=== PATIENT | male | born 1940 | race Caucasian/White ===

== ENCOUNTER → 2017-05-10 13:11 | Outpatient (CLI) | payer MEDICARE, SELFPAY ==
[2017-05-10 14:51] LABS: Blood Urea Nitrogen 23 mg/dL (7-18); Creatinine,Serum 1.08 mg/dL (0.70-1.30); Estimated Glomerular Filt Rate 66 ml/min (>60); GFR (African American) 80 ML/MIN (>60)
== END ==
PROVIDERS: Visit Provider Nurse Practitioner Family
DX: K62.5 Hemorrhage of anus and rectum (principal)
CPT/HCPCS: 36415; 82565; 84520

== ENCOUNTER → 2017-05-11 09:24 | Outpatient (CLI) | payer MEDICARE, SELFPAY ==
--- NOTE | 2017-05-11 09:30 | CT_ITS ---
CT abdomen pelvis w con COMPARISON: CT scan abdomen pelvis 04/11/2016 HISTORY: Rectal bleeding TECHNIQUE: Multiaxial scans obtained from the hemidiaphragms to the pelvic floor and were performed with IV and oral contrast. Sagittal and coronal reformats were evaluated as well. FINDINGS: The lower lung sawyer are clear. Cardiac size is normal. The liver spleen stomach and pancreas appear grossly normal. The gallbladder is normal size and shows partial septation near the neck of the gallbladder but no definite gallstones. The adrenal glands are normal. The kidneys are normal size and show symmetrical function. Again noted is a prominent right renal pelvis likely due to a parapelvic cyst. There is no obstructive uropathy of either kidney. The small bowel appears grossly normal, most of the oral contrast is in the distal small bowel. There has been a previous appendectomy. There is large amount stool throughout colon. There is mild elongation of the sigmoid colon. There is a possible polypoid lesion arising from the posterior wall the rectum versus stool. The prostate is moderately enlarged and causes extrinsic mass effect on the base of urinary bladder.. IMPRESSION: 1. Stable parapelvic cyst right kidney versus extrarenal pelvis I favor the former 2. Somewhat redundant sigmoid colon, questionable filling defect arising from the posterior wall of the mid rectum versus stool. And in view of the history consider follow-up colonoscopy for continuing evaluation
--- NOTE | 2017-05-11 10:16 | HMH.ITSHM ---
NAPROXEN, FLUOXETINE, SMVASTATIN, TAZTIA, TRIAM, FINASTENDE, TAMSULOXN, MEMANTINE, FAMOTIDINE, CENTRUM, B12, ASPIRIN, CLEAR FAX
== END ==
PROVIDERS: PCP Family Medicine; Visit Provider Nurse Practitioner Family
DX: K62.5 Hemorrhage of anus and rectum (principal)
CPT/HCPCS: 74177; Q9967

== ENCOUNTER → 2017-07-23 08:39 | Outpatient (POV) | payer MEDICARE, SELFPAY | PROVIDERS: Visit Provider Physician Assistant | DX: Z00.00 Encounter for general adult medical examination without abnormal findings (principal) ==

== ENCOUNTER → 2018-01-01 13:50 | Outpatient (CLI) | payer MEDICARE, SELFPAY ==
--- NOTE | 2018-01-01 14:01 | XR_ITS ---
XR knee LT 4V HISTORY: ITS.REASON: LT KNEE PAIN ORDERING PHYSICIAN: Radha Rosen MD PATIENT AGE: 77 years COMPARISON: 03/24/2016 FINDINGS: Weightbearing views are performed. Moderate to severe osteoarthritic changes are present at the lateral compartment with moderate osteoarthritis of the patellofemoral joint and medial compartment. Osteosclerosis with osteophyte formation is present. There is chondrocalcinosis of the medial meniscus. A rounded sclerotic density is present in the popliteal fossa at 16 mm and may represent a synovial osteochondroma. No fracture or dislocation. IMPRESSION: Moderate to severe osteoarthritis which is somewhat worse when compared to the previous exam
== END ==
PROVIDERS: PCP Family Medicine; Visit Provider Orthopaedic Surgery
DX: M25.562 Pain in left knee (principal)
CPT/HCPCS: 73564

== ENCOUNTER 2018-01-01 14:51 | Outpatient (RCR) | payer MEDICARE, SELFPAY | END 2018-01-02 09:59 | disposition home or self-care (01) | LOC: PT 14:51 | PROVIDERS: Visit Provider Orthopaedic Surgery | DX: M17.11 Unilateral primary osteoarthritis, right knee (principal) | CPT/HCPCS: 97760 ==

== ENCOUNTER → 2018-08-01 07:23 | Outpatient (CLI) | payer MEDICARE, SELFPAY ==
--- NOTE | 2018-08-01 07:28 | CT_ITS ---
CT abdomen pelvis wo con CLINICAL INDICATION: ITS.REASON: PAINLESS HEMATURIA ORDERING PHYSICIAN: Vadim Potts MD PATIENT AGE: 78 years COMPARISON: 05/11/2017. TECHNIQUE: Axial images obtained with sagittal and coronal reformats. All CT scans at the facility use one or more dose reduction, viz: automated exposure control, ma/kV adjustment per patient size (including targeted exams where dose is matched to indication, i.e. head), or iterative reconstruction technique. PROCEDURE: Oral Contrast: None IV Contrast: None . FINDINGS: Lower thorax: No acute finding Liver, gallbladder, spleen, pancreas and adrenal glands are normal. There is a stable prominent likely developmental right renal pelvis. The kidneys are normal. Urinary bladder shows a posterior stable outpouching which could be thyroid. There are no urinary bladder stones. There are some aortic calcified plaques without dilatation. There is incomplete fluid distention of the stomach for adequate evaluation. GI tract is otherwise unremarkable. Appendix is not visualized. There are some surgical clips at the right inguinal area. Pelvis is otherwise unremarkable. There are some degenerative changes at the hips bilaterally with subchondral cyst formation involving both femoral heads. There is also degenerative subchondral changes involving the roof of the acetabular areas. There is mild levoscoliosis. IMPRESSION: No acute process. Developmental stable right prominent renal pelvis. Probable stable posterior wall urinary bladder diverticulum. Degenerative changes in the hip areas bilaterally. No definite renal lesion or renal or ureteral stone. However symptoms persist I would suggest repeat study with intravenous contrast and delayed imaging.
== END ==
PROVIDERS: PCP Family Medicine; Visit Provider Family Medicine
DX: R31.9 Hematuria, unspecified (principal)
CPT/HCPCS: 74176

== ENCOUNTER → 2018-10-22 12:44 | Outpatient (POV) | payer MEDICARE, SELFPAY | PROVIDERS: Visit Provider Dermatology | DX: Z00.00 Encounter for general adult medical examination without abnormal findings (principal) ==

== ENCOUNTER → 2019-01-07 10:54 | Outpatient (POV) | payer MEDICARE, SELFPAY | PROVIDERS: Visit Provider Dermatology | DX: Z00.00 Encounter for general adult medical examination without abnormal findings (principal) ==

== ENCOUNTER → 2019-08-19 10:22 | Outpatient (CLI) | payer MEDICARE, SELFPAY ==
--- NOTE | 2019-08-19 10:35 | XR_ITS ---
PROCEDURE: XR KUB CLINICAL INDICATION: GENERALIZED ABD PAIN COMPARISON: No exams were available for comparison FINDINGS: Bowel gas pattern is nonspecific. No intestinal obstruction or free air. There are multiple surgical tacks along the lower pelvic region on right. Degenerative changes are present in the lumbar spine with mild scoliosis and within the hips. IMPRESSION: Nonspecific nonacute findings Dictated by: Neal Trujillo MD 08/19/2019 15:27 Electronically signed by Neal Trujillo MD in [facility] 08/19/2019 15:27
== END ==
PROVIDERS: PCP Family Medicine; Visit Provider Family Medicine
DX: R10.84 Generalized abdominal pain (principal)
CPT/HCPCS: 74018

== ENCOUNTER 2019-08-20 05:26 | Emergency (ER) | payer MEDICARE, SELFPAY ==
[2019-08-20 05:27] VITALS: BP 130/77; PULSE 70; RESP 18; TEMP 36.4; O2SAT 99; BMI 21.9
--- NOTE | 2019-08-20 05:35 | CT_ITS ---
PROCEDURE: CT ABDOMEN PELVIS WO CON CLINICAL INDICATION: flank pain Right flank pain, difficulty urinating COMPARISON: ABDPELWO CT abdomen pelvis wo con from 08/01/2018 TECHNIQUE: Axial images obtained with sagittal and coronal reformats. All CT scans at the facility use one or more dose reduction, viz: automated exposure control, ma/kV adjustment per patient size (including targeted exams where dose is matched to indication, i.e. head), or iterative reconstruction technique. FINDINGS: LOWER THORAX: On the most superior image there is a noncalcified pulmonary nodule within the right upper lobe measuring 6 mm. There is trace right pleural effusion. Minimal pericardial thickening noted as well as coronary artery calcification. The liver, gallbladder, spleen, adrenal glands have an unremarkable appearance. There is atrophy of the pancreas. There is bilateral hydronephrosis and hydroureter secondary to severe distention of the urinary bladder. No renal or ureteral calculi evident. The urinary bladder extends superiorly to the level of the umbilicus. The prostate is enlarged at 5.6 by 5.3 cm. The prostate has a somewhat nodular contour superiorly. No intestinal obstruction or free air. There is a mild amount of retained colonic feces. Surgical clips are present in the right lower quadrant and right inguinal region. Clip is also noted in the left inguinal area. No evidence of appendicitis or diverticulitis. There is mild diffuse anasarca. No acute bony anomalies are evident. IMPRESSION: 1. Distended urinary bladder with bilateral hydronephrosis and hydroureter. No ureteral calculi. 2. Enlarged prostate with nodular contour. 3. Constipation 4. 6 mm nodule right upper lobe incompletely imaged Dictated by: Neal Trujillo MD 08/20/2019 06:42 Electronically signed by Neal Trujillo MD in [facility] 08/20/2019 06:42
[2019-08-20 05:43] LABS: Microscopic, Urine URINE MICROSCOPIC (MICROSCOPIC)
[2019-08-20 05:43] LABS: Basophils # 0.1 K/mm3 (0-0.2); Basophils % 0.7 % (0.1-2.0); Eosinophils # 0.3 K/mm3 (0.0-0.4); Hematocrit 43.1 % (42.0-52.0); Hemoglobin 15.1 g/dL (14.1-18.0); Lymphocytes # 1.8 K/mm3 (0.7-4.5); Lymphocytes % 27.1 % (10-50); Mean Corpuscular HGB Conc 35.1 g/dL (31.8-35.4); Mean Corpuscular Hemoglobin 32.5 pg (27.0-31.2); Mean Corpuscular Volume 92.8 fl (80-94); Mean Platelet Volume 8.5 fl (7.4-10.4); Monocytes # 0.7 K/mm3 (0.1-1.0); Monocytes % 10.1 % (1.7-9.3); Neutrophils # 3.7 K/mm3 (1.8-7.8); Neutrophils % 57.1 % (37.0-80.0); Platelet Count 164 K/mm3 (142-424); Red Blood Count 4.64 M/mm3 (4.60-6.20); Red Cell Distribution Width 12.6 % (11.5-17.5); White Blood Count 6.5 K/mm3 (4.8-10.8)
[2019-08-20 05:44] LABS: Appearance,Urine CLEAR (Clear); Bilirubin,Urine Negative (Negative); Blood, Urine Negative (Negative); Color,Urine YELLOW (Yellow); Glucose,Urine (UA) Negative (Negative); Ketones,Urine Negative (Negative); Leukocyte Esterase,Urine Negative (Negative); Nitrate,Urine Negative (Negative); Protein,Urine Negative (Negative); Specific Gravity, Urine 1.015 (1.005-1.030); Urobilinogen,Urine 0.2 EU/dl (0.2)
[2019-08-20 05:45] LABS: Chloride 99 mmol/L (98-107); Sodium 138 mmol/L (136-145)
[2019-08-20 05:46] LABS: Potassium 3.8 mmoL/L (3.5-5.1)
[2019-08-20 05:48] LABS: Alanine Aminotransferase 21 U/L (12-78); Albumin Level 4.3 g/dl (3.5-5.0); Alkaline Phosphatase 117 U/L (38-126); Anion Gap 16.8 mEq/L (5-15); Aspartate Amino Transferase 30 U/L (17-59); Blood Urea Nitrogen 28 mg/dl (9-20); Carbon Dioxide 26 mmol/L (22.0-30.0); Creatinine Clearance Estimated 32 mL/min (50-200); Estimated Glomerular Filt Rate 30 ml/min (>60); GFR (African American) 37 ML/MIN (>60)
[2019-08-20 05:49] LABS: Albumin/Globulin Ratio 1.4 (1.1-1.8); Calcium 9.6 mg/dl (8.4-10.2); Glucose 102 mg/dl (74-100); Total Protein,Serum 7.3 g/dl (6.3-8.2)
[2019-08-20 06:14] LABS: Bacteria,Urine Trace /lpf; Squamous Epithelial Cell,Urine Occasional #/hpf (0-5)
[2019-08-20 06:30] VITALS: BP 136/75; PULSE 55; RESP 14; O2SAT 95
--- NOTE | 2019-08-20 07:01 | HMH.EDGENADL ---
ED Disposition Clinical Impression: Urinary retention, Prostate enlargement Disposition: Home, Self-Care Condition on Discharge: Good Instructions: DI for Urinary Retention in Men Additional Instructions: Urinalysis shows no urinary tract infection; CBC is essentially normal with no leukocytosis, CMP shows elevated BUN and creatinine of 28 and 2.1 with a GFR of 30 The change in the GFR seems to be relatively new; as of 05/10/2017 he had a BUN and creatinine of 23 and 1.08 with a GFR greater than 60 CT of the abdomen and pelvis shows bilateral hydronephrosis and hydroureter secondary to severe distention of the urinary bladder no renal or ureteral calculi are evident the urinary bladder extends superiorly to the level of the umbilicus the prostate is enlarged at 5.6 x 5.3 cm the prostate has a somewhat nodular contour superiorly Spoke to Dr. Alcantara, urologist about the patient and he has advised that the patient should go home with a Davis catheter and see him in the office in a few days. he can stay on his current medications which include Flomax and finasteride Referrals: Provider,Referral, [Referring] - Time of Disposition: 08:00 - Critical Care Critical Care Time: No Attestation: On 08/20/19, the high probability of a clinically significant, sudden or life threatening deterioration of the following system(s) required my full and direct attention, intervention and personal management. The time I documented below is in addition to time spent performing reported procedures but includes the following listed in this critical care notation. Medical Decision Making - Medical Records Medical records reviewed: Yes: I reviewed the patient's medical records. MR Comment: Pt woke up with severe lower back pain with radiation to the right groin area..patient has Alzheimer's dementia and hence his did a lot of help with history. states he has not been urinating well lately and sometimes goes to the rest room several times in a row. Urinalysis shows no urinary tract infection; CBC is essentially normal with no leukocytosis, CMP shows elevated BUN and creatinine of 28 and 2.1 with a GFR of 30. The change in the GFR seems to be relatively new; as of 05/10/2017 he had a BUN and creatinine of 23 and 1.08 with a GFR greater than 60. CT of the abdomen and pelvis shows bilateral hydronephrosis and hydroureter secondary to severe distention of the urinary bladder no renal or ureteral calculi are evident the urinary bladder extends superiorly to the level of the umbilicus the prostate is enlarged at 5.6 x 5.3 cm the prostate has a somewhat nodular contour superiorly. Spoke to Dr. Alcantara, urologist about the patient and he has advised that the patient should go home with a Davis catheter and see him in the office in a few days. Dr. Alcantara also advised that the patient could be Discharged home. We will be giving him a liter of IV fluids before he goes home he can stay on his current medications which include Flomax and finasteride - Jian Inquiry Pt receiving controlled substance: No Vital Signs: 08/20/19 05:27 08/20/19 06:30 Temperature 97.6 F Temperature Source Oral Pulse Rate [Right] 70 55 L Respiratory Rate 18 14 Blood Pressure [Right Arm] 130/77 136/75 Blood Pressure Mean [Right Arm] 94 95 Blood Pressure Source [Right Arm] Automatic Cuff Automatic Cuff Blood Pressure Position [Right Arm] Supine Supine 02 Sat by Pulse Oximetry 99 95 Oxygen Delivery Method Room Air Nasal Cannula Oxygen Flow Rate (LPM) 2 - Lab Data Lab results reviewed: Yes: I reviewed the patient's lab results. Lab Results 08/20/19 05:03: WBC 6.5, RBC 4.64, Hgb 15.1, Hct 43.1, MCV 92.8, MCH 32.5 H, MCHC 35.1, RDW 12.6, Plt Count 164, MPV 8.5, Neut % (Auto) 57.1, Lymph % (Auto) 27.1, [place] % (Auto) 10.1 H, Eos % (Auto) 5.0, Baso % (Auto) 0.7, Neut # (Auto) 3.7, Lymph # (Auto) 1.8, [place] # (Auto) 0.7, Eos # (Auto) 0.3, Baso # (Auto) 0.1 08/20/19 05:03: Sodium 138, Po
--- NOTE | 2019-08-20 07:36 | PC.NURSE ---
. Speaking with Dr. Alcantara.
[2019-08-20 07:40] VITALS: BP 138/77; PULSE 51; RESP 16; O2SAT 95
--- NOTE | 2019-08-20 07:43 | PC.NURSE ---
Emptied 2000ml of dark yellow urine from dawson bag
[2019-08-20 08:00] VITALS: BP 143/75; PULSE 50; O2SAT 96
[2019-08-20 08:53] VITALS: BP 137/72; PULSE 50; O2SAT 98
[2019-08-20 09:57] VITALS: BP 149/87; PULSE 52; RESP 16; TEMP 36.9; O2SAT 100
== END 2019-08-20 09:58 | disposition home or self-care (01) ==
PROVIDERS: Emergency Provider Emergency Medicine; PCP Family Medicine
DX: N40.1 Benign prostatic hyperplasia with lower urinary tract symptoms (principal); F03.90 Unspecified dementia, unspecified severity, without behavioral disturbance, psychotic disturbance, mood disturbance, and anxiety; K21.9 Gastro-esophageal reflux disease without esophagitis; E78.5 Hyperlipidemia, unspecified; I10 Essential (primary) hypertension; Z79.899 Other long term (current) drug therapy; F41.9 Anxiety disorder, unspecified
CPT/HCPCS: 74176; 80053; 81001; 85025; 96365; 96366; 96375; 99284; J2405

== ENCOUNTER 2019-08-21 09:16 | Observation (INO) | payer MEDICARE, SELFPAY ==
[2019-08-21] VITALS (11 sets, daily range): BP systolic 104–130; BP diastolic 52–67; PULSE 40–60; RESP 13–20; TEMP 36.5–36.8; O2SAT 91–98; BMI 23.0; BMI 11.0
--- NOTE | 2019-08-21 09:21 | XR_ITS ---
PROCEDURE: XR CHEST PORTABLE CLINICAL HISTORY: ams Altered mental status COMPARISON: CXR1 CHEST-PORTABLE from 12/24/2013 CXR CHEST(2 VIEWS-NOT PORTABLE) from 01/10/2015 CXR CHEST(2 VIEWS-NOT PORTABLE) from 05/25/2015 FINDINGS: The cardiomediastinal silhouette and pulmonary vascularity are within normal limits. The lungs are clear without infiltrates, suspicious nodules, or pleural effusions. There are osteoarthritic changes of the shoulders right greater than left IMPRESSION: No acute findings. Dictated by: Neal Trujillo MD 08/21/2019 10:26 Electronically signed by Neal Trujillo MD in [facility] 08/21/2019 10:26
--- NOTE | 2019-08-21 09:34 | HMH.EDGENADL ---
ED Disposition Clinical Impression: Bilateral arm pain Disposition: Admitted as Observation Condition on Discharge: Good Referrals: PCP,No [Primary Care Provider] - - Critical Care Critical Care Time: No Attestation: On , the high probability of a clinically significant, sudden or life threatening deterioration of the following system(s) required my full and direct attention, intervention and personal management. The time I documented below is in addition to time spent performing reported procedures but includes the following listed in this critical care notation. Medical Decision Making - Jian Inquiry Pt receiving controlled substance: No Vital Signs: 08/21/19 09:16 08/21/19 09:46 Temperature 98.0 F Temperature Source Oral Pulse Rate [Right] 60 55 L Respiratory Rate 18 17 Blood Pressure [Right Arm] 104/65 L 106/55 L Blood Pressure Mean [Right Arm] 78 72 Blood Pressure Source [Right Arm] Automatic Cuff Automatic Cuff Blood Pressure Position [Right Arm] Supine Supine 02 Sat by Pulse Oximetry 98 96 Oxygen Delivery Method Room Air Room Air - Lab Data Lab Results 08/21/19 09:32: Urine Color Yellow, Urine Appearance Clear, Urine pH 8.5, Ur Specific [place] 1.015, Urine Protein Negative, Urine Glucose (UA) Negative, Urine Ketones Trace, Urine Blood 1+, Urine Nitrate Negative, Urine Bilirubin Negative, Urine Urobilinogen 0.2, Ur Leukocyte Esterase 1+ A, Urine RBC Occasional, Urine WBC 10-20, Urine Sperm Occ 08/21/19 09:32: WBC 6.4, RBC 4.29 L, Hgb 14.3, Hct 41.0 L, MCV 95.5 H, MCH 33.3 H, MCHC 34.8, RDW 12.8, Plt Count 173, MPV 8.5, Neut % (Auto) 70.2, Lymph % (Auto) 19.2, [place] % (Auto) 7.3, Eos % (Auto) 2.9, Baso % (Auto) 0.4, Neut # (Auto) 4.5, Lymph # (Auto) 1.2, [place] # (Auto) 0.5, Eos # (Auto) 0.2, Baso # (Auto) 0.0 08/21/19 09:32: Sodium 140, Potassium 3.8, Chloride 104, Carbon Dioxide 28, Anion Gap 11.8, BUN 19 D, Creatinine 1.10 D, Estimated Creat Clear 57, Estimated GFR 64, Est GFR ( Amer) 78 D, Glucose 97, Calcium 9.3, Total Bilirubin 0.9, AST 26, ALT 20, Alkaline Phosphatase 113, Troponin I < 0.01, Total Protein 6.3, Albumin 3.6 D, Globulin 2.7, Albumin/Globulin Ratio 1.3 Result diagrams: 08/21/19 09:32 08/21/19 09:32 Orders (Tests/Meds): ORDERS Category Date Time Status Troponin I Q3H Lab 08/21/19 12:45 Ordered Troponin I Q3H Lab 08/21/19 15:45 Ordered Urine Culture Stat Micro 08/21/19 09:32 Received - Radiology Data #1 Image(s): Chest Image Reviewed: Yes I reviewed the patient's radiology image Preliminary Findings: Normal/NAD - ECG Data Tracing #1 EKG interpreted by Stephon Patricia MD: Rhythm: sinus bradycardia Rate: 50. [place]: normal Ectopy: none Conduction: normal ST Segment Changes: none T Wave Changes: none Q Waves: none No evidence of acute ischemia or injury Baseline artifact present, but I consider the EKG adequate for accurate interpretation. - Physician Consults Physician Consulted: Tamera Time: 10:20 Reason -: Admission, Pt condition Comment/Response: He states the patient was also in his office on Sunday, 2 days ago, for abdominal pain. Agrees to admit the patient to the hospital. We discussed the patient's clinical information, including history, exam, laboratory and radiology results and ED course. Per hospital procedure, I will write temporary bridge inpatient orders on the patient. Specific orders requested by the admitting physician: Serial cardiac enzymes - Reevaluation(s) Time: 10:11 Reevaluation #1: Patient states that all of his fingers and his left hand feel like they are going to burst . He says they feel numb . However, he has intact sensation on exam. Normal pulses. Normal capillary refill. Normal warmth. Uses his left arm normally. No detectable weakness. Time: 10:33 Reevaluation #3: Discussed condition with patient and and they are agreeable. Patient states I guess I do not have any choice .
[2019-08-21 09:44] LABS: Microscopic, Urine URINE MICROSCOPIC (MICROSCOPIC)
[2019-08-21 09:46] LABS: Appearance,Urine CLEAR (Clear); Bilirubin,Urine Negative (Negative); Blood, Urine 1+ (Negative); Color,Urine YELLOW (Yellow); Glucose,Urine (UA) Negative (Negative); Ketones,Urine TRACE (Negative); Leukocyte Esterase,Urine 1+ (Negative); Nitrate,Urine Negative (Negative); PH,Urine 8.5 (5.0-8.5); Protein,Urine Negative (Negative); Specific Gravity, Urine 1.015 (1.005-1.030); Urobilinogen,Urine 0.2 EU/dl (0.2)
[2019-08-21 09:50] LABS: Basophils % 0.4 % (0.1-2.0); Eosinophils # 0.2 K/mm3 (0.0-0.4); Eosinophils % 2.9 % (0.1-12.0); Hemoglobin 14.3 g/dL (14.1-18.0); Lymphocytes # 1.2 K/mm3 (0.7-4.5); Lymphocytes % 19.2 % (10-50); Mean Corpuscular HGB Conc 34.8 g/dL (31.8-35.4); Mean Corpuscular Hemoglobin 33.3 pg (27.0-31.2); Mean Corpuscular Volume 95.5 fl (80-94); Mean Platelet Volume 8.5 fl (7.4-10.4); Monocytes # 0.5 K/mm3 (0.1-1.0); Monocytes % 7.3 % (1.7-9.3); Neutrophils # 4.5 K/mm3 (1.8-7.8); Neutrophils % 70.2 % (37.0-80.0); Platelet Count 173 K/mm3 (142-424); Red Blood Count 4.29 M/mm3 (4.60-6.20); Red Cell Distribution Width 12.8 % (11.5-17.5); White Blood Count 6.4 K/mm3 (4.8-10.8)
[2019-08-21 09:54] LABS: Alanine Aminotransferase 20 U/L (12-78); Albumin Level 3.6 g/dl (3.5-5.0); Albumin/Globulin Ratio 1.3 (1.1-1.8); Alkaline Phosphatase 113 U/L (38-126); Anion Gap 11.8 mEq/L (5-15); Aspartate Amino Transferase 26 U/L (17-59); Bilirubin,Total 0.9 mg/dl (0.2-1.3); Blood Urea Nitrogen 19 mg/dl (9-20); Calcium 9.3 mg/dl (8.4-10.2); Carbon Dioxide 28 mmol/L (22.0-30.0); Chloride 104 mmol/L (98-107); Creatinine Clearance Estimated 57 mL/min (50-200); Estimated Glomerular Filt Rate 64 ml/min (>60); GFR (African American) 78 ML/MIN (>60); Globulin 2.7 g/dL (1.3-3.2); Glucose 97 mg/dl (74-100); Potassium 3.8 mmoL/L (3.5-5.1); Sodium 140 mmol/L (136-145); Total Protein,Serum 6.3 g/dl (6.3-8.2)
--- NOTE | 2019-08-21 09:55 | ECG_ITS ---
APPROVED REPORT Exam: Resting ECG HR:53 bpm ECG Measurements Heart Rate 53 AXES HI 184 P 10 QRSd 88 QRS 39 QT 454 T 38 QTc 426 <Conclusion> Sinus bradycardia Low voltage QRS Borderline ECG Electronically signed by : Kishor Corado, 08/22/2019 17:04:31
[2019-08-21 10:02] LABS: RBC,Urine Occasional #/hpf (0-3)
[2019-08-21 10:03] LABS: Sperm,Urine OCC /lpf
[2019-08-21 10:09] LABS: Troponin I < 0.01 ng/ml (0.00-0.034)
--- NOTE | 2019-08-21 10:13 | PC.NURSE ---
dr jennifer park
--- NOTE | 2019-08-21 10:36 | INFXCTL.NOTE ---
notified RN stating that pt was grabbing his chest as if he was in pain, assessed pt, pt denies any pain or discomfort, pt NSR on hall monitor, MD notified no new orders given
--- NOTE | 2019-08-21 11:25 | PC.NURSE ---
Pt arrived onto the floor at this time, via stretcher
--- NOTE | 2019-08-21 12:27 | HMH.HP ---
*Admission Date: 08/21/19 <Hetal Rodriguez 08/21/19 12:40> *Chief complaint: arm pain <Hetal Rodriguez 08/21/19 12:40> *History of present illness: Mr. Powell is an 79-year-old male with a history of severe dementia who was seen in the office of [facility] on Sunday for abdominal pain. His states the pain worsened and he also began having back pain, therefore he went to the ER. He was found to have urinary retention due to an enlarged prostate. A catheter was placed with good output and he was sent home with the catheter. He has an appointment with Dr. Alcantara on Sunday. He seemed to be doing well until he woke up this morning and began complaining of extreme pain in his arms and hands. She states he initially had numbness and tingling which turned into pain. He became very agitated and restless, therefore she called an ambulance and he was brought to the emergency room again. She states initially, the pain started in his left index middle and ring fingers, and then he complained of pain in his wrist and forearm. He then began complaining of pain in his right hand wrist and forearm. He had an episode in the ER where he told them his hands felt like they were going to burst. He also described them as feeling numb. He was able to use his arms with no weakness, had normal pulses and capillary refill, and normal warmth of his hands. The ER physician wanted to admit him to rule out any kind of cardiac ischemia. <Hetal Rodriguez 08/21/19 14:39> [facility] History I have reviewed the patient's past medical history: Yes <Hetal Rodriguez 08/21/19 12:40> Medical History: Reports:: Anxiety, BPH, Cancer (SKIN CANCER), Dementia, Gastroesophageal Reflux Disease(GERD), Gastrointestinal Bleed, Hyperlipidemia, Hypertension Denies:: Atrial Fibrillation, Deep Vein Thrombosis, Diabetes Mellitus Type 1, Diabetes Mellitus Type 2, Lung Disease, MRSA, Myocardial Infarction, Seizures <Hetal Rodriguez 08/21/19 12:40> *Have you ever received a pneumonia vaccine?: Yes <Hetal Rodriguez 08/21/19 12:40> *Have you received a flu vaccine this season?: Yes <Hetal Rodriguez 08/21/19 12:40> Other Medical History: Reports: Arthritis. Denies: Blood Transfusion Reaction <Hetal Rodriguez 08/21/19 12:40> Comment:: SVT, Benign tremor <Hetal Rodriguez 08/21/19 12:40> Laterality Cases: Bilateral: Tonsillectomy <Hetal Rodriguez 08/21/19 12:40> Other Surgeries: Yes: Appendectomy, Cancer Surgery (Basal cell removed from face), Colonoscopy, Hernia Repair, Other (Back sx, Left foot surgery) <Hetal Rodriguez 08/21/19 12:40> Amputation: No <Hetal Rodriguez 08/21/19 12:40> Fractures: No <Hetal Rodriguez 08/21/19 12:40> - *Social History Last grade of school completed: High school graduate <Hetal Rodriguez 08/21/19 12:40> Smoking Status: Never smoker <Hetal Rodriguez 08/21/19 12:40> Alcohol Intake: never <Hetal Rodriguez 08/21/19 12:40> Alcohol Intake Frequency:: other <Hetal Rodriguez 08/21/19 12:40> Substance Use Type: denies use <Hetal Rodriguez 08/21/19 12:40> *Occupational Status:: retired <Hetal Rodriguez 08/21/19 12:40> Housing: house <Hetal Rodriguez 08/21/19 12:40> Household Members: spouse <Hetal Rodriguez 08/21/19 12:40> *Travel in the last 8 weeks: None <Hetal Rodriguez 08/21/19 12:40> - Psychiatric History Pschychiatric History:: Reports:: Anxiety <Hetal Rodriguez 08/21/19 12:40> Family Hx:: Hyperlipidemia, Hypertension, Mental illness <Hetal Rodriguez 08/21/19 12:40> Review of Systems - Constitutional Denies body ache(s), Denies chills, Denies fever(s), Denies weakness <Hetal Rodriguez 08/21/19 14:39> - Eyes Denies blurry vision, Denies double vision <Hetal Rodriguez 08/21/19 14:39> - ENT Denies nasal congestion, Denies sore throat <Hetal Rodriguez 08/21/19 14:39> - *Cardiovascular Denies chest pain, Denies shortness of breath, Denies rapid, pounding, or irregular heartbeat <Hetal Rodriguez 08/21/19 14:39> - *Respi
[2019-08-21 13:47] LABS: Troponin I < 0.01 ng/ml (0.00-0.034)
--- NOTE | 2019-08-21 15:37 | P.CONPHA_ITS ---
[facility] Pharmacy VTE Monitoring - Patient Demographics Admission date: 08/21/19 Report Date: 08/21/19 Time: 15:37 Allergies/Adverse Reactions: Patient Allergies No Known Allergies Allergy (Verified 05/01/18 09:34) Height: 1.83 m Weight: 36.826 kg Patient Problems: Current Active Problems Bilateral arm pain (Acute) Hypertension (Acute) Hyperlipidemia (Acute) Dementia (Acute) - VTE Risk Labs: VTE Related Lab Results Hgb 14.3 g/dL (14.1-18.0) 08/21/19 09:32 Hct 41.0 % (42.0-52.0) L 08/21/19 09:32 Plt Count 173 K/mm3 (142-424) 08/21/19 09:32 BUN 19 mg/dl (9-20) D 08/21/19 09:32 Creatinine 1.10 mg/dl (0.66-1.25) D 08/21/19 09:32 Estimated Creat Clear 57 mL/min (50-200) 08/21/19 09:32 VTE Score: 2 VTE Risk Level: Very Low Risk - Prophylaxis Types of VTE Prophylaxis: TEDS Knee High (ARIEL HOSE ORDERED) Location of Applied Device: Bilateral Lower Extremeties
[2019-08-21 17:03] LABS: Troponin I < 0.01 ng/ml (0.00-0.034)
--- NOTE | 2019-08-21 19:27 | ECG_ITS ---
APPROVED REPORT Exam: Resting ECG HR:48 bpm ECG Measurements Heart Rate 48 AXES ND 176 P 32 QRSd 92 QRS 28 QT 452 T 20 QTc 403 <Conclusion> Marked sinus bradycardia Low voltage QRS Abnormal ECG Electronically signed by : Kishor Corado, 08/22/2019 17:02:23
[2019-08-21 20:32] LABS: Troponin I < 0.01 ng/ml (0.00-0.034)
--- NOTE | 2019-08-21 21:22 | PC.NURSE ---
1924- pt came out in the hallway stating her was c/o chest pain. Pt was unable to rate his pain on a numeric scale, but described pain as a sharp pain in his chest. 1925- VS obtained: 111/57 69 HR 98.2 97% on RA 20 RR 1926- EKG performed. Marked Sinus Uday 1928- Lab called for STAT troponin per chest pain protocol 1936- EKG read by MD Patricia. No acute changes 1943- pt given (4) 81 mg chewable ASA per protocol 1948- pt states he is no longer in pain and is sitting up in bed watching tv with 1949- MD Potts paged on pt's condition, no new orders
[2019-08-22] VITALS: BP 115/57; PULSE 40; PULSE 52; RESP 16; TEMP 36.7; O2SAT 94
[2019-08-22 04:00] VITALS: BP 134/64; PULSE 49; PULSE 50; RESP 20; TEMP 36.8; O2SAT 93
[2019-08-22 04:53] VITALS: BMI 24.5
--- NOTE | 2019-08-22 05:58 | PC.NURSE ---
Pt has rested well t/o this shift. Davis draining clear, dark yellow urine. Pt has had no other c/o pain this shift. remains at bedside. Call light within reach, bed alarm remains on. No other complaints at this time, will continue to monitor.
[2019-08-22 06:45] LABS: Basophils % 0.4 % (0.1-2.0); Eosinophils # 0.4 K/mm3 (0.0-0.4); Eosinophils % 6.3 % (0.1-12.0); Hematocrit 37.5 % (42.0-52.0); Lymphocytes # 1.1 K/mm3 (0.7-4.5); Lymphocytes % 18.7 % (10-50); Mean Corpuscular HGB Conc 33.6 g/dL (31.8-35.4); Mean Corpuscular Hemoglobin 32.1 pg (27.0-31.2); Mean Corpuscular Volume 95.7 fl (80-94); Mean Platelet Volume 8.9 fl (7.4-10.4); Monocytes # 0.5 K/mm3 (0.1-1.0); Monocytes % 8.5 % (1.7-9.3); Neutrophils # 3.8 K/mm3 (1.8-7.8); Platelet Count 134 K/mm3 (142-424); Red Blood Count 3.91 M/mm3 (4.60-6.20); Red Cell Distribution Width 12.7 % (11.5-17.5); White Blood Count 5.7 K/mm3 (4.8-10.8)
[2019-08-22 06:51] LABS: Chloride 104 mmol/L (98-107); Potassium 3.5 mmoL/L (3.5-5.1); Sodium 139 mmol/L (136-145)
[2019-08-22 06:54] LABS: Blood Urea Nitrogen 18 mg/dl (9-20); Creatinine Clearance Estimated 67 mL/min (50-200); Estimated Glomerular Filt Rate 81 ml/min (>60); GFR (African American) 98 ML/MIN (>60)
[2019-08-22 06:55] LABS: Anion Gap 7.5 mEq/L (5-15); Calcium 8.4 mg/dl (8.4-10.2); Carbon Dioxide 31 mmol/L (22.0-30.0); Glucose 87 mg/dl (74-100)
[2019-08-22 07:19] LABS: Hemoglobin 12.7 g/dL (14.1-18.0)
[2019-08-22 08:00] VITALS: BP 136/76; PULSE 50; PULSE 60; RESP 16; TEMP 36.5; O2SAT 91
--- NOTE | 2019-08-22 08:20 | HMH.ACPN2 ---
<Hetal Rodriguez - Last Filed: 08/22/19 08:20> Internal Medicine - PN: Subj *Date: 08/22/19 *Time: 08:20 Interval history: Patient states he is feeling well this morning. He denies any hand pain. His states he did have some mild chest pain during the night and was given an aspirin. This has resolved. She also states that occasionally he says he feels like something is biting him. She is worried he may be having some nerve pain and that is what is causing the pain in his hands and feet off and on. He slept well and ate well this morning. He is still pleasantly confused but his mood is much better. Exam Vital signs and Labs for Last 24 Hours: Temp Pulse Resp BP Pulse Ox 98.3 F 49 L 20 134/64 93 L 08/22/19 04:00 08/22/19 04:00 08/22/19 04:00 08/22/19 04:00 08/22/19 04:00 Laboratory Results - last 24 hr 08/21/19 09:32: Urine Color Yellow, Urine Appearance Clear, Urine pH 8.5, Ur Specific [place] 1.015, Urine Protein Negative, Urine Glucose (UA) Negative, Urine Ketones Trace, Urine Blood 1+, Urine Nitrate Negative, Urine Bilirubin Negative, Urine Urobilinogen 0.2, Ur Leukocyte Esterase 1+ A, Urine RBC Occasional, Urine WBC 10-20, Urine Sperm Occ 08/21/19 09:32: WBC 6.4, RBC 4.29 L, Hgb 14.3, Hct 41.0 L, MCV 95.5 H, MCH 33.3 H, MCHC 34.8, RDW 12.8, Plt Count 173, MPV 8.5, Neut % (Auto) 70.2, Lymph % (Auto) 19.2, [place] % (Auto) 7.3, Eos % (Auto) 2.9, Baso % (Auto) 0.4, Neut # (Auto) 4.5, Lymph # (Auto) 1.2, [place] # (Auto) 0.5, Eos # (Auto) 0.2, Baso # (Auto) 0.0 08/21/19 09:32: Sodium 140, Potassium 3.8, Chloride 104, Carbon Dioxide 28, Anion Gap 11.8, BUN 19 D, Creatinine 1.10 D, Estimated Creat Clear 57, Estimated GFR 64, Est GFR ( Amer) 78 D, Glucose 97, Calcium 9.3, Total Bilirubin 0.9, AST 26, ALT 20, Alkaline Phosphatase 113, Troponin I < 0.01, Total Protein 6.3, Albumin 3.6 D, Globulin 2.7, Albumin/Globulin Ratio 1.3 08/21/19 13:12: Troponin I < 0.01 08/21/19 16:20: Troponin I < 0.01 08/21/19 19:30: Troponin I < 0.01 08/22/19 06:15: WBC 5.7, RBC 3.91 L, Hgb 12.7 L D, Hct 37.5 L, MCV 95.7 H, MCH 32.1 H, MCHC 33.6, RDW 12.7, Plt Count 134 L, MPV 8.9, Neut % (Auto) 66.0, Lymph % (Auto) 18.7, [place] % (Auto) 8.5, Eos % (Auto) 6.3, Baso % (Auto) 0.4, Neut # (Auto) 3.8, Lymph # (Auto) 1.1, [place] # (Auto) 0.5, Eos # (Auto) 0.4, Baso # (Auto) 0.0 08/22/19 06:15: Sodium 139, Potassium 3.5, Chloride 104, Carbon Dioxide 31 H, Anion Gap 7.5, BUN 18, Creatinine 0.90, Estimated Creat Clear 67, Estimated GFR 81, Est GFR ( Amer) 98 D, Glucose 87, Calcium 8.4 I & O for Last 24 hours: Intake & Output 08/19/19 08/20/19 08/21/19 08/22/19 11:59 11:59 11:59 11:59 Intake Total 1120 / 1120 Output Total 1200 / 1200 Balance -80 / -80 Weight 81 lb 3 oz 181 lb 7.047 oz - Constitutional no acute distress - *Routine Respiratory Exam Present: CTA bilaterally - *Routine Cardiovascular Exam Present: RRR - *Routine Abdominal Exam Present: soft, normoactive bowel sounds. Absent: tenderness - *Routine Extremities Exam Absent: cyanosis, clubbing, edema - *Routine Skin Exam Present: warm. Absent: rash - *Routine Neurological Exam Present: alert confused but pleasant Assessment and Plan (1) Bilateral arm pain Current visit: Yes Status: Acute Category: Medical Code(s): M79.601 - Pain in right arm; M79.602 - Pain in left arm (2) Prostate enlargement Current visit: No Status: Acute Category: Medical Code(s): N40.0 - Benign prostatic hyperplasia without lower urinary tract symptoms (3) Urinary retention Current visit: No Status: Acute Category: Medical Code(s): R33.9 - Retention of urine, unspecified (4) Hypertension Current visit: Yes Status: Acute Category: Medical Code(s): I10 - Essential (primary) hypertension (5) Hyperlipidemia Current visit: Yes Status: Acute Category: Medical Code(s): E78.5 - Hyperlipidemia, unspecified (6) Dementia Current
--- NOTE | 2019-08-22 09:16 | HMH.PHAINT ---
DISCHARGE COUNSELING COMPLETED ON PATIENT. NEW PRESCRIPTION FOR GABAPENTIN 100MG BID. THIS WAS SENT TO [facility] IN [place]. PATIENT IS TO CONTINUE ALL OTHER HOME MEDICATIONS. PATIENT AND PATIENT'S VERBALIZED UNDERSTANDING AND HAD NO QUESTIONS AT THIS TIME. -JOHANNE CHRISTINE, ABNERD
--- NOTE | 2019-08-22 10:15 | HMH.DCSUM ---
General - General Admission date:: 08/21/19 Discharge date: 08/22/19 HPI HPI: Mr. Powell is an 79-year-old male with a history of severe dementia who was seen in the office of [facility] on Sunday for abdominal pain. His states the pain worsened and he also began having back pain, therefore he went to the ER. He was found to have urinary retention due to an enlarged prostate. A catheter was placed with good output and he was sent home with the catheter. He has an appointment with Dr. Alcantara on Sunday. He seemed to be doing well until he woke up this morning and began complaining of extreme pain in his arms and hands. She states he initially had numbness and tingling which turned into pain. He became very agitated and restless, therefore she called an ambulance and he was brought to the emergency room again. She states initially, the pain started in his left index middle and ring fingers, and then he complained of pain in his wrist and forearm. He then began complaining of pain in his right hand wrist and forearm. He had an episode in the ER where he told them his hands felt like they were going to burst. He also described them as feeling numb. He was able to use his arms with no weakness, had normal pulses and capillary refill, and normal warmth of his hands. The ER physician wanted to admit him to rule out any kind of cardiac ischemia. Hospital Course Hospital Course: The patient was admitted and his serial enzymes were all negative. His did state he had some mild chest pain throughout the night and was given an aspirin. This resolved. He had no further hand or arm pain and did seem to be feeling better. He was stable to be discharged home with a trial of gabapentin for possible nerve pain. He has an appointment with Dr. Alcantara in 3 days to discuss removal of his Davis catheter for his urinary retention and enlarged prostate. Objective Vital signs: Temp Pulse Resp BP Pulse Ox 97.7 F 60 16 136/76 91 L 08/22/19 08:00 08/22/19 08:00 08/22/19 08:00 08/22/19 08:00 08/22/19 08:00 Narrative: - Constitutional no acute distress - *Routine HEENT Exam Head: Present: normocephalic Eye: Present: EOMI, PERRL ENT: Present: mucous membranes moist - *Routine Neck Exam Present: supple. Absent: lymphadenopathy - *Routine Respiratory Exam Present: CTA bilaterally - *Routine Cardiovascular Exam Present: RRR - *Routine Abdominal Exam Present: soft, normoactive bowel sounds. Absent: tenderness - *Routine Extremities Exam Absent: cyanosis, clubbing, edema - *Routine Skin Exam Present: warm. Absent: rash - *Routine Neurological Exam Present: alert, oriented X3, CN II-XII intact. Absent: sensory deficit, motor deficit Results Labs on day of discharge: Labs from last 24 hours 08/22/19 08/22/19 08/21/19 06:15 06:15 19:30 WBC 5.7 RBC 3.91 L Hgb 12.7 L D Hct 37.5 L MCV 95.7 H MCH 32.1 H MCHC 33.6 RDW 12.7 Plt Count 134 L MPV 8.9 Neut % (Auto) 66.0 Lymph % (Auto) 18.7 [place] % (Auto) 8.5 Eos % (Auto) 6.3 Baso % (Auto) 0.4 Neut # (Auto) 3.8 Lymph # (Auto) 1.1 [place] # (Auto) 0.5 Eos # (Auto) 0.4 Baso # (Auto) 0.0 Sodium 139 Potassium 3.5 Chloride 104 Carbon Dioxide 31 H Anion Gap 7.5 BUN 18 Creatinine 0.90 Estimated Creat Clear 67 Estimated GFR 81 Est GFR ( Amer) 98 D Glucose 87 Calcium 8.4 Troponin I < 0.01 08/21/19 08/21/19 16:20 13:12 WBC RBC Hgb Hct MCV MCH MCHC RDW Plt Count MPV Neut % (Auto) Lymph % (Auto) [place] % (Auto) Eos % (Auto) Baso % (Auto) Neut # (Auto) Lymph # (Auto) [place] # (Auto) Eos # (Auto) Baso # (Auto) Sodium Potassium Chloride Carbon Dioxide Anion Gap BUN Creatinine Estimated Creat Clear Estimated GFR Est GFR
--- NOTE | 2019-08-22 13:29 | PC.NURSE ---
THIS RN PROVIDED D/C INSTRUCTIONS TO PATIENT'S . THIS RN EDUCATED PATIENT IN REGARDS TO SIDE EFFECTS OF GABAPENTIN AND D/C INSTRUCTIONS FOR ARM PAIN. THIS RN PROVIDED TEACHING OF CATHETER CARE, QUESTIONS ASKED AND ANSWERED. PATIENT'S VERBALIZED AN UNDERSTANDING TO ALL TEACHINGS. NO OTHER CONCERNS AT THIS TIME.
== END 2019-08-22 10:15 | disposition home or self-care (01) ==
LOC: ER 10:43 → 2ND 10:50
PROVIDERS: Admitting Provider Family Medicine; Emergency Provider Emergency Medicine; PCP Family Medicine; Visit Provider Family Medicine
DX: M79.601 Pain in right arm (principal); M79.602 Pain in left arm; I10 Essential (primary) hypertension; E78.5 Hyperlipidemia, unspecified; N40.0 Benign prostatic hyperplasia without lower urinary tract symptoms; R33.9 Retention of urine, unspecified; Z79.82 Long term (current) use of aspirin; Z79.899 Other long term (current) drug therapy
CPT/HCPCS: 36415; 71045; 80048; 80053; 81001; 84484; 85025; 87086; 93005; 99285; G0378

== ENCOUNTER → 2019-08-29 10:43 | Outpatient (CLI) | payer MEDICARE, SELFPAY ==
[2019-08-29 12:10] LABS: Blood Urea Nitrogen 15 mg/dl (9-20); Estimated Glomerular Filt Rate 81 ml/min (>60); GFR (African American) 98 ML/MIN (>60)
== END ==
PROVIDERS: Visit Provider Urology
DX: R33.9 Retention of urine, unspecified (principal); N13.8 Other obstructive and reflux uropathy; N40.1 Benign prostatic hyperplasia with lower urinary tract symptoms
CPT/HCPCS: 36415; 82565; 84153; 84154; 84520

== ENCOUNTER → 2019-08-29 11:01 | Outpatient (CLI) | payer MEDICARE, SELFPAY ==
--- NOTE | 2019-08-29 11:01 | CT_ITS ---
PROCEDURE: CT ABDOMEN PELVIS WO/W CON CLINICAL INDICATION: urinary retention Lower abdominal pain, urinary retention COMPARISON: ABDPELW CT abdomen pelvis w con from 05/11/2017 CT ABDOMEN PELVIS WO CON from 08/20/2019 TECHNIQUE: IV Contrast: 75ML OPTIRAY 350 Oral Contrast 450ml Redicat Axial images obtained with sagittal and coronal reformats. All CT scans at the facility use one or more dose reduction, viz: automated exposure control, ma/kV adjustment per patient size (including targeted exams where dose is matched to indication, i.e. head), or iterative reconstruction technique. FINDINGS: LOWER THORAX: 6 mm nodule right middle lobe unchanged. Atelectatic changes are present in the right lung base with trace right effusion ABDOMEN & PELVIS: The liver, gallbladder, spleen, pancreas, and adrenal glands have an unremarkable appearance there is a 3.7 cm right peripelvic renal cyst. There is minimal ectasia of the left ureter with minimal enhancement of the ureter wall.. No definite ureteral calculus is evident. There is a moderate amount of retained colonic feces within redundant colon 6. There is mild thickening the cardia of the stomach which may be due to nondistention No intestinal obstruction or free air. No evidence of appendicitis. There has been prior right inguinal hernia repair. There is a Davis catheter present. The prostate is enlarged at 5.6 x 5.8 cm. The urinary bladder is decompressed with thickened wall. There is some mild scattered sclerosis of the bones of the pelvis not significantly changed. IMPRESSION: 1. Enlarged prostate 2. Davis catheter is present. The urinary bladder wall is thickened and could be due to either nondistention, cystitis, or neoplasm or a combination there of. 3. Minimal ectasia of the left ureter nonspecific with minimal enhancement of the ureter wall which could be seen with urinary tract infection 4. Other nonacute findings as described above Dictated by: Neal Trujillo MD 08/30/2019 09:04 Electronically signed by Neal Trujillo MD in [place] 08/30/2019 09:04
== END ==
PROVIDERS: PCP Family Medicine; Visit Provider Urology
DX: R33.9 Retention of urine, unspecified (principal)
CPT/HCPCS: 36415; 74178; 82565; 84153; 84154; 84520; Q9967

== ENCOUNTER 2019-09-02 03:56 | Emergency (ER) | payer MEDICARE, SELFPAY ==
[2019-09-02 03:58] VITALS: BP 125/77; PULSE 84; RESP 20; TEMP 37.6; O2SAT 95; BMI 23.6
[2019-09-02 04:15] VITALS: TEMP 39.6
[2019-09-02 04:18] LABS: Basophils % 0.2 % (0.1-2.0); Eosinophils # 0.1 K/mm3 (0.0-0.4); Eosinophils % 0.5 % (0.1-12.0); Hematocrit 42.1 % (42.0-52.0); Hemoglobin 14.6 g/dL (14.1-18.0); Lymphocytes # 0.9 K/mm3 (0.7-4.5); Lymphocytes % 8.6 % (10-50); Mean Corpuscular HGB Conc 34.7 g/dL (31.8-35.4); Mean Corpuscular Hemoglobin 32.7 pg (27.0-31.2); Mean Corpuscular Volume 94.1 fl (80-94); Mean Platelet Volume 8.1 fl (7.4-10.4); Monocytes # 0.7 K/mm3 (0.1-1.0); Monocytes % 6.2 % (1.7-9.3); Neutrophils # 9.1 K/mm3 (1.8-7.8); Neutrophils % 84.5 % (37.0-80.0); Platelet Count 197 K/mm3 (142-424); Red Blood Count 4.47 M/mm3 (4.60-6.20); Red Cell Distribution Width 12.4 % (11.5-17.5); White Blood Count 10.7 K/mm3 (4.8-10.8)
--- NOTE | 2019-09-02 04:23 | PC.NURSE ---
His is now at the bedside. She states Dr. Philip is his PCP. She states Dr. Alcantara took out his catheter on 09/01/19. She states he had that catheter for 2 weeks and that it was placed due to retention. She denies any type of renal disease or hx of kidney stones.
[2019-09-02 04:24] LABS: Chloride 100 mmol/L (98-107); Potassium 3.7 mmoL/L (3.5-5.1); Sodium 135 mmol/L (136-145)
[2019-09-02 04:27] LABS: Anion Gap 14.7 mEq/L (5-15); Blood Urea Nitrogen 22 mg/dl (9-20); Calcium 8.8 mg/dl (8.4-10.2); Carbon Dioxide 24 mmol/L (22.0-30.0); Creatinine Clearance Estimated 59 mL/min (50-200); Estimated Glomerular Filt Rate 72 ml/min (>60); GFR (African American) 87 ML/MIN (>60); Glucose 122 mg/dl (74-100)
[2019-09-02 04:51] VITALS: BP 104/62; PULSE 90; RESP 20; TEMP 37; O2SAT 94
[2019-09-02 05:54] LABS: Lactic Acid 0.9 mmol/L (0.7-2.1)
--- NOTE | 2019-09-02 06:22 | HMH.EDGENADL ---
ED Disposition Clinical Impression: Acute urinary retention, UTI (urinary tract infection) Disposition: Home, Self-Care Condition on Discharge: Good Instructions: Urinary Tract Infection Prescriptions: levoFLOXacin [Levaquin 500mg tab] 500 mg PO DAILY #6 tab Transmission Status: Pending to [id number] Referrals: Emil Philip MD [Primary Care Provider] - - Critical Care Critical Care Time: No Attestation: On 09/02/19, the high probability of a clinically significant, sudden or life threatening deterioration of the following system(s) required my full and direct attention, intervention and personal management. The time I documented below is in addition to time spent performing reported procedures but includes the following listed in this critical care notation. Medical Decision Making - Medical Records Medical records reviewed: Yes: I reviewed the patient's medical records. - Jian Inquiry Pt receiving controlled substance: No Vital Signs: 09/02/19 03:58 09/02/19 04:15 09/02/19 04:51 Temperature 99.7 F H 103.2 F H 98.6 F Temperature Source Oral Rectal Oral Pulse Rate [Right Brachial] 84 90 Respiratory Rate 20 20 Blood Pressure [Right Arm] 125/77 104/62 L Blood Pressure Mean [Right Arm] 93 76 Blood Pressure Source [Right Arm] Automatic Cuff Automatic Cuff Blood Pressure Position [Right Arm] Sitting Sitting 02 Sat by Pulse Oximetry 95 94 L Oxygen Delivery Method Room Air Room Air - Lab Data Lab results reviewed: Yes: I reviewed the patient's lab results. Lab Results 09/02/19 04:09: WBC 10.7, RBC 4.47 L, Hgb 14.6, Hct 42.1, MCV 94.1 H, MCH 32.7 H, MCHC 34.7, RDW 12.4, Plt Count 197, MPV 8.1, Neut % (Auto) 84.5 H, Lymph % (Auto) 8.6 L, [place] % (Auto) 6.2, Eos % (Auto) 0.5, Baso % (Auto) 0.2, Neut # (Auto) 9.1 H, Lymph # (Auto) 0.9, [place] # (Auto) 0.7, Eos # (Auto) 0.1, Baso # (Auto) 0.0 09/02/19 04:09: Sodium 135 L, Potassium 3.7, Chloride 100, Carbon Dioxide 24, Anion Gap 14.7, BUN 22 H, Creatinine 1.00, Estimated Creat Clear 59, Estimated GFR 72, Est GFR ( Amer) 87, Glucose 122 H, Calcium 8.8 09/02/19 05:14: Lactate 0.9 Result diagrams: 09/02/19 04:09 09/02/19 04:09 Orders (Tests/Meds): ED MEDICATIONS Discontinued Medications Generic Name Dose Route Start Last Admin Trade Name Addie PRN Reason Stop Dose Admin Acetaminophen 650 mg 09/02/19 04:17 09/02/19 04:20 Acetaminophen 325mg Tab PO 09/02/19 04:18 650 mg ONCE ONE Administration ORDERS Category Date Time Status Blood Culture Stat Micro 09/02/19 05:14 Received Medical Decision Narrative: Catheter was placed for the patient and he is ready to be discharged and wants to go home. General Adult HPI - General Chief complaint: PAIN Stated complaint: Unable to void Time Seen by Provider: 09/02/19 06:22 Mode of Arrival: EMS Limitations: Hx of Alzheimers Description of Symptoms (Recalled from ER Triage Doc. by RN): Pt recently seen by at doctor's office. States f/c was removed on 09/01/19 and he is unable to void. He is a poor historian r/t Alzheimer's disease. He reports pain and feels need to void. Unable to give name of PCP. - History of Present Illness HPI narrative: He 1-year-old male presents the ED with suprapubic pain and unable to void x24 hours. Patient was recently seen at his urology office and his catheter was removed and some medication was injected into his bladder to see if he could void. Here in the ED catheter was placed and 1200 cc was obtained on the output. And patient's pain went from 8 out of 10 to 0 out of 10. Patient did have a fever at 102.7 here in the ED. But otherwise patient has no other complaints after the catheter was placed he says he feels good and is ready to go home. Patient denies any fatigue or malaise. Patient denies any cough or shortness of breath. Patient denies any sore throat or headache. Patient denies any loss of taste or smel
[2019-09-02 07:09] VITALS: BP 98/69; PULSE 95; RESP 16; TEMP 36.8; O2SAT 94
== END 2019-09-02 07:14 | disposition home or self-care (01) ==
PROVIDERS: Emergency Provider Family Medicine; PCP Family Medicine
DX: N30.00 Acute cystitis without hematuria (principal); F03.90 Unspecified dementia, unspecified severity, without behavioral disturbance, psychotic disturbance, mood disturbance, and anxiety; E78.5 Hyperlipidemia, unspecified; I10 Essential (primary) hypertension; K21.9 Gastro-esophageal reflux disease without esophagitis; Z90.09 Acquired absence of other part of head and neck
CPT/HCPCS: 80048; 83605; 85025; 87040; 87077; 87186; 99284

== ENCOUNTER → 2019-10-01 08:33 | Outpatient (CLI) | payer MEDICARE, SELFPAY ==
--- NOTE | 2019-10-01 08:34 | NM_ITS ---
PROCEDURE: NM BONE SCAN WHOLE BODY CLINICAL INDICATION: elevated psa COMPARISON: CR [id number] XR knee LT 4V from 01/01/2018 CR XR CHEST PORTABLE from 08/21/[address] ABDOMEN PELVIS WO/W CON from 08/29/2019 TECHNIQUE: Dose 26.6 mCi technetium MDP FINDINGS: There is a Davis catheter present with artifact from the Davis catheter. Images were repeated after repositioning of the catheter. Intense increased activity is present in the right shoulder. Prior chest radiograph confirm severe osteoarthritic changes in the right shoulder. There is also increased activity in the left knee. Prior radiograph also showed severe osteoarthritis of the left knee specially in the lateral compartment. Slight increased activity is present in the manubrium on the right. This is nonspecific. There is also increased activity in the cervical spine in the mid lower C-spine. Radiograph of the same day demonstrated cervical spondylosis which is felt to be the cause of the increased activity. No blastic lesion evident. Moderate amount of activity is noted in the right kidney suggesting right-sided obstructive uropathy or urine stasis.. Overall, the findings are not convincing for metastatic disease. IMPRESSION: 1. No convincing evidence of metastatic disease. 2. Arthritic changes of the right shoulder and left knee 3. Increased activity in the right renal pelvicaliceal system suggesting right-sided obstructive uropathy or urine stasis Dictated by: Neal Trujillo MD 10/03/2019 09:29 Neal Trujillo MD in [place] 10/03/2019 09:29
--- NOTE | 2019-10-01 08:57 | HMH.ITSHM ---
Current Home Medications as stated by this patient Maksim Powell or cash applications representative. []MIRALAX LEVOFLOXACIN DILTIAZEM HCTZ TAMSULOSIN SIMVASTATIN NAPROXEN MEMANTINE GABAPENTIN FLUOXETINE FINASTERIDE FAMOTIDINE ASA
--- NOTE | 2019-10-01 13:25 | XR_ITS ---
PROCEDURE: XR CERVICAL SPINE 2V CLINICAL INDICATION: HOT SPOT ON BONE SCAN COMPARISON: CT HDWO CT HEAD W/O CONTRAST from 06/28/2015 FINDINGS: No fracture or dislocation. No lytic or blastic change. There is normal mineralization. There is multilevel degenerative disc disease from C4 to T1 with endplate osteophytes decrease in the disc spaces and osteosclerosis along facet arthritic changes. This likely accounts for the increased activity on bone scan. No lytic or blastic change apparent. Other findings:Carotid artery calcification noted on the. IMPRESSION: Cervical spondylosis. No lytic or blastic change apparent Dictated by: Neal Trujillo MD 10/02/2019 05:39 Neal Trujillo MD in [place] 10/02/2019 05:39
== END ==
PROVIDERS: PCP Family Medicine; Visit Provider Urology
DX: N40.2 Nodular prostate without lower urinary tract symptoms (principal); R97.20 Elevated prostate specific antigen [PSA]
CPT/HCPCS: 72040; 78306; A9503

== ENCOUNTER → 2019-10-03 11:08 | Outpatient (CLI) | payer MEDICARE, SELFPAY ==
[2019-10-03 11:34] LABS: Basophils % 0.6 % (0.1-2.0); Eosinophils # 0.3 K/mm3 (0.0-0.4); Eosinophils % 4.3 % (0.1-12.0); Hematocrit 42.9 % (42.0-52.0); Hemoglobin 14.8 g/dL (14.1-18.0); Lymphocytes # 1.1 K/mm3 (0.7-4.5); Lymphocytes % 19.4 % (10-50); Mean Corpuscular HGB Conc 34.5 g/dL (31.8-35.4); Mean Corpuscular Hemoglobin 32.4 pg (27.0-31.2); Mean Corpuscular Volume 93.8 fl (80-94); Mean Platelet Volume 8.5 fl (7.4-10.4); Monocytes # 0.4 K/mm3 (0.1-1.0); Neutrophils % 68.6 % (37.0-80.0); Platelet Count 153 K/mm3 (142-424); Red Blood Count 4.58 M/mm3 (4.60-6.20); Red Cell Distribution Width 12.7 % (11.5-17.5); White Blood Count 5.8 K/mm3 (4.8-10.8)
[2019-10-03 12:38] LABS: Chloride 102 mmol/L (98-107)
[2019-10-03 12:39] LABS: Potassium 4.5 mmoL/L (3.5-5.1); Sodium 142 mmol/L (136-145)
[2019-10-03 12:41] LABS: Blood Urea Nitrogen 19 mg/dl (9-20); Estimated Glomerular Filt Rate 81 ml/min (>60); GFR (African American) 98 ML/MIN (>60)
[2019-10-03 12:42] LABS: Anion Gap 11.5 mEq/L (5-15); Calcium 9.5 mg/dl (8.4-10.2); Carbon Dioxide 33 mmol/L (22.0-30.0); Glucose 101 mg/dl (74-100)
[2019-10-03 14:55] LABS: Coronavirus 19 IgG Antibody Negative (Negative); Coronavirus 19 IgM Antibody Negative (Negative)
== END ==
PROVIDERS: Visit Provider Urology
DX: R33.9 Retention of urine, unspecified (principal); R97.20 Elevated prostate specific antigen [PSA]
CPT/HCPCS: 36415; 80048; 85025; 86328

== ENCOUNTER 2019-10-04 16:40 | Emergency (ER) | payer MEDICARE, SELFPAY ==
[2019-10-04 16:54] VITALS: BP 110/68; PULSE 67; RESP 19; TEMP 36.8; O2SAT 96; BMI 22.5
[2019-10-04 17:01] VITALS: BP 110/68; PULSE 67; RESP 19; TEMP 36.8; O2SAT 96; BMI 22.4
[2019-10-04 17:45] VITALS: BP 110/68; PULSE 67; RESP 19; TEMP 36.8; O2SAT 96
== END 2019-10-04 17:46 | disposition home or self-care (01) ==
LOC: ER 16:47 → UTC 16:52
PROVIDERS: Emergency Provider Nurse Practitioner Family; PCP Family Medicine
DX: T83.9XXA Unspecified complication of genitourinary prosthetic device, implant and graft, initial encounter (principal); N40.0 Benign prostatic hyperplasia without lower urinary tract symptoms; R33.8 Other retention of urine
CPT/HCPCS: G0463; 99202

== ENCOUNTER 2019-10-06 12:39 | Observation (INO) | payer MEDICARE, SELFPAY ==
[2019-10-02 13:42] VITALS: BMI 21.7
[2019-10-06] VITALS (23 sets, daily range): BP systolic 97–130; BP diastolic 39–75; PULSE 50–69; RESP 10–18; TEMP 33.9–43; O2SAT 90–97; BMI 24.5
--- NOTE | 2019-10-06 10:03 | HMH.ANESCL ---
[facility] Anesthesia Checklist - Patient Identification Patient Identification: Arm Band, Family, Guardian - Structural Data Admitted From: Home Planned Operative Procedure/s: TURP Consent for Planned Operative Procedure(s) Verified: Yes Verified Documents: Surgical Consent, History and Physical - NPO Status Verified Time NPO: 20:30 - Chart Verification Results Verified: CBC, BMP - Additional verifications Anesthesia Reactions: No Hx Blood Transfusions: No Blood Transfusion Reaction: No - Airway Assessment C-Spine Mobility Assessed: Yes TMJ Mobility Assessed: Yes Dentition: Good Dentition - Neurological Assessment Level of Consciousness: Awake, Follows Commands, Disoriented Hx Seizures: No Numbness or tingling in extremities: No - Anesthesia Plan Anesthesia Risk discussed: Yes Anesthesia Plan: Verified ASA Class: IV Anesthesia Type: General [facility] History I have reviewed the patient's past medical history: Yes Medical History: Reports:: Anxiety, BPH, Cancer, Dementia, Depression, Gastroesophageal Reflux Disease(GERD), Gastrointestinal Bleed, Hyperlipidemia, Hypertension Denies:: Atrial Fibrillation, Deep Vein Thrombosis, Diabetes Mellitus Type 1, Diabetes Mellitus Type 2, Internal Pacemaker, Lung Disease, MRSA, Myocardial Infarction, Seizures *Have you ever received a pneumonia vaccine?: No *Have you received a flu vaccine this season?: No Other Medical History: Reports: Arthritis. Denies: Blood Transfusion Reaction Anesthesia experience/problems:: No prior complications Laterality Cases: Bilateral: Tonsillectomy Other Surgeries: Yes: Appendectomy, Cancer Surgery, Colonoscopy, Hernia Repair, Other. No: Pacemaker Amputation: No Fractures: No - *Social History Last grade of school completed: High school graduate Smoking Status: Never smoker Alcohol Intake: never Alcohol Intake Frequency:: other Substance Use Type: denies use *Occupational Status:: other Housing: house Household Members: spouse *Travel in the last 8 weeks: None - Psychiatric History Pschychiatric History:: Reports:: Anxiety, Depression Family Hx:: Hyperlipidemia, Hypertension, Mental illness
--- NOTE | 2019-10-06 12:11 | P.PN_ITS ---
[facility] Anesthesia Record Part I Intake, IV Amount: 800 Estimated blood loss (mL): 0 Urine output (mL): 0 Blood Pressure: 130/75 SaO2: 90 Pulse Rate: 63 Respiratory Rate: 10 Temperature: 97.5 F Patient is:: Drowsy, Oral/Nasal airway, Stable Stable to PACU at:: 12:10
--- NOTE | 2019-10-06 12:21 | PC.NURSE ---
1210-continuous bladder irrigation being performed in pacu, closely monitoring bladder I&O's, and urine characteristics, will continue to monitor
--- NOTE | 2019-10-06 12:47 | P.OP_ITS ---
Date of procedure: 10/06/19 Pre-op Diagnosis:: Urinary retention secondary to BPH Post-op Diagnosis:: Urinary retention secondary to BPH Procedure performed:: Transurethral resection of prostate Surgeon:: Chino Alcantara MD CONTINUOUS IMPROVEMENT LEAD:: Jose Angel Agustin Anesthesia: GETA Estimated blood loss (mL): 15 Clinical Note:: 79-year-old white male with history of dementia has urinary retention and failed 2 voiding trials. He also has a history of elevated PSA of the 130 as well as prostate nodule suspicious for prostate cancer. He presents today for transurethral resection of prostate to allow him to void as well as to obtain tissue for diagnosis of possible prostate cancer. Operative findings:: Trilobar hyperplasia with a large median lobe. Bladder showed chronic bladder outlet obstructive changes with severe trabeculation and cellule formation. The ureteral orifices were obscured by large median lobe. Operative note:: Patient taken to the operating room after informed consent was obtained. He was placed on the operating table in the supine position. General anesthesia administered. Preoperative antibiotics and sequential compression devices placed. He was then placed into the dorsal lithotomy position and prepped and draped in the standard surgical fashion. Davis catheter was removed prior to prepping and draping. The 22 Antony passed into the urethra and down to the prostatic urethra which showed trilobar hyperplasia with a large median lobe. The bladder was entered and examined in a systematic fashion. There was severe trabeculation of the floor of the bladder. The ureteral orifices were obscured by large median lobe. The scope removed and the 28 Ivorian resectoscope sheath with obturator passed into the urethra and into the bladder. After I removed and there are resectoscope passed into the sheath. Resection began at the large median lobe taking it down to via normal bladder neck. Within resected the bladder neck in a circumferential fashion. We then continue to resect the floor of the prostate back to the verumontanum. The right side of the prostate was th en resected in a clockwise fashion back to the VA root. The left side the prostate was resected in a counterclockwise position back to the verumontanum. The anterior tissue was resected back to the barrier as well. The tissue appeared to be a bit sticky in the lateral lobes and the suspicious for cancer. The apical tissue was resected as our third stage. Hemostasis achieved and all of the TURP chips were evacuated. The scope removed and a 22 Ivorian three-way Davis passed into the bladder without difficulty and 30 cc placed into the balloon. The catheter was secured to the patient's leg as he had pulled out a catheter twice at home. This is due to his dementia. Patient tolerated procedure well discharged to recovery room in stable condition with continuous bladder irrigation. The prostate chips were sent off for evaluation. Condition: stable Disposition: PACU Specimens:: Prostate tissue Complications:: None
--- NOTE | 2019-10-06 13:01 | PC.NURSE ---
1237-detailed report called to Jada,RN [id number]-pt transported to post op via hospital bed w/audra rails up and left in care of TRAVIS Elias, urine remains clear/pale pink and draining to catheter bag w/out difficulty, vss, pt stable
--- NOTE | 2019-10-06 13:27 | PC.NURSE ---
Addendum entered by Sherrie Sosa RN 10/06/19 13:27: also relayed to him his temp was 94.7. he stated to warm the bags of saline up before administering. Original Note: called and spoke with dr jordan. patient has glycine hanging but he stated it was okay to hang normal saline for continuos bladder irrigation.
--- NOTE | 2019-10-06 14:42 | PC.NURSE ---
patient temp low, will obtain accurate weight once temp comes up and we can remove blankets
--- NOTE | 2019-10-06 16:40 | PC.NURSE ---
patient rectal temp 98.2 so selene mariposa removed because of patient complaints it is too warm. current oral temp 97.9. will continue to monitor temp periodically.
--- NOTE | 2019-10-06 16:41 | P.PN_ITS ---
[facility] Anesthesia Record Part II Discharge Time: 12:40 Destination: Medical Surgical Department PACU nurse assessment reviewed?: Yes Patient Condition:: Good Anesthesia Complications:: None Swallowing reflex intact?: Yes Cyanosis?: No Blood Pressure: 113/61 Pulse Rate: 58 Temperature: 97.1 F Mental Status: Alert & Oriented Pain level:: 0 Nausea and/or vomitting:: None Intake, IV Amount: 0
--- NOTE | 2019-10-06 18:58 | PC.NURSE ---
counting bags in intake as they empty. emptying catheter bag as needed. some bleeding noted at penis but very small amount. encouraging patient to not pull at catheter. some confusion at times but pleasantly confused. pulling at iv and tubes. temperature is now up and within normal limits. no complaints noted. titrating irrigation to keep urine light pink to clear
--- NOTE | 2019-10-06 19:17 | PC.NURSE ---
report given to rambo
--- NOTE | 2019-10-06 19:48 | PC.NURSE ---
patient home meds in drawer
[2019-10-07 04:00] VITALS: BP 101/53; PULSE 51; RESP 18; TEMP 36.8; O2SAT 95
--- NOTE | 2019-10-07 04:16 | PC.NURSE ---
A&O TO NAME AND BIRTHDAY. PT HAS TOLERATED ROOM AIR WELL THROUGHOUT SHIFT. RESPIRATIONS REGULAR AND UNLABORED. LUNG SOUNDS DIMINISHED THROUGHOUT. NO EDEMA NOTED. +2 PULSES NOTED. ACTIVE BOWEL SOUNDS HEARD IN ALL 4 QUADRANTS. SOFT AND NONTENDER ABDOMEN. NO BM THUS FAR. DONIS CATHETER IN PLACE W CBI GOING. URINE IS LIGHT PINK TO CLEAR THROUGHOUT SHIFT. NO KINKS NOTED. PT HAS TOLERATED WELL. ENCOURAGED PT TO USE INCENTIVE SPIROMETER 10 TIMES EVERY HOUR WHILE AWAKE. PT RECEIVED CEFAZOLIN ONCE THIS SHIFT AND TOLERATED WELL. 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 NO PAIN REPORTED THIS SHIFT. AT BEDSIDE. NS INFUSING AT 75ML/HR. PT HAS RESTED WELL THIS SHIFT. PT CURRENTLY LYING IN BED W CALL LIGHT WITHIN REACH. BED IN LOWEST POSITION. BED ALARM ON TO PROMOTE SAFETY. VSS. WILL CONTINUE TO MONITOR.
[2019-10-07 06:41] LABS: Basophils % 0.1 % (0.1-2.0); Hematocrit 36.4 % (42.0-52.0); Hemoglobin 12.3 g/dL (14.1-18.0); Lymphocytes # 0.6 K/mm3 (0.7-4.5); Lymphocytes % 5.5 % (10-50); Mean Corpuscular HGB Conc 33.7 g/dL (31.8-35.4); Mean Corpuscular Hemoglobin 32.2 pg (27.0-31.2); Mean Corpuscular Volume 95.3 fl (80-94); Mean Platelet Volume 8.8 fl (7.4-10.4); Monocytes # 0.5 K/mm3 (0.1-1.0); Monocytes % 4.7 % (1.7-9.3); Neutrophils # 9.4 K/mm3 (1.8-7.8); Neutrophils % 89.6 % (37.0-80.0); Platelet Count 156 K/mm3 (142-424); Red Blood Count 3.82 M/mm3 (4.60-6.20); Red Cell Distribution Width 12.8 % (11.5-17.5); White Blood Count 10.4 K/mm3 (4.8-10.8)
[2019-10-07 06:42] LABS: Chloride 104 mmol/L (98-107)
[2019-10-07 06:43] LABS: Sodium 137 mmol/L (136-145)
[2019-10-07 06:45] LABS: Blood Urea Nitrogen 16 mg/dl (9-20); Creatinine Clearance Estimated 75 mL/min (50-200); Estimated Glomerular Filt Rate 93 ml/min (>60); GFR (African American) 112 ML/MIN (>60)
[2019-10-07 06:46] LABS: Calcium 8.4 mg/dl (8.4-10.2); Carbon Dioxide 28 mmol/L (22.0-30.0); Glucose 140 mg/dl (74-100)
[2019-10-07 06:49] LABS: MANUAL DIFFERENTIAL MANUAL DIFFERENTIAL (MANUAL DIFF)
[2019-10-07 08:00] VITALS: BP 125/73; PULSE 65; RESP 17; TEMP 36.7; O2SAT 94
[2019-10-07 09:06] LABS: Lymphocytes % 7 % (10-50); Monocytes % 2 % (2-9); Neutrophils % 87 % (42-76); Platelet Estimate Normal; Total Cells Counted 100
[2019-10-07 09:07] LABS: RBC Morphology Normal
--- NOTE | 2019-10-07 10:36 | P.CONPHA_ITS ---
[facility] Pharmacy VTE Monitoring - Patient Demographics Admission date: 10/07/19 Report Date: 10/07/19 Time: 10:36 Allergies/Adverse Reactions: Patient Allergies No Known Allergies Allergy (Verified 09/22/19 14:58) Height: 1.93 m Weight: 91.371 kg - VTE Risk Labs: VTE Related Lab Results Hgb 12.3 g/dL (14.1-18.0) L 10/07/19 05:40 Hct 36.4 % (42.0-52.0) L 10/07/19 05:40 Plt Count 156 K/mm3 (142-424) 10/07/19 05:40 BUN 16 mg/dl (9-20) 10/07/19 05:40 Creatinine 0.80 mg/dl (0.66-1.25) 10/07/19 05:40 Estimated Creat Clear 75 mL/min (50-200) 10/07/19 05:40 VTE Score: 3 VTE Risk Level: Low Risk - Prophylaxis Types of VTE Prophylaxis: IPCS Thigh High (SCDS ORDERED)
--- NOTE | 2019-10-07 10:37 | HMH.PHAINT ---
MED REC-COMPARED MED LIST WITH RX BOTTLES.
[2019-10-07 11:25] VITALS: BP 120/64; PULSE 60; RESP 17; TEMP 36.6; O2SAT 96
--- NOTE | 2019-10-07 12:38 | P.PN_ITS ---
Internal Medicine - PN: Subj *Date: 10/07/19 *Time: 12:39 Interval history: Patient denies any abdominal pain, nausea vomiting. His appetite is good. His urine is clear off of continuous bladder irrigation. Exam Vital signs and Labs for Last 24 Hours: Temp Pulse Resp BP Pulse Ox 97.8 F 60 17 120/64 96 10/07/19 11:25 10/07/19 11:25 10/07/19 11:25 10/07/19 11:25 10/07/19 11:25 Laboratory Results - last 24 hr 10/07/19 05:40: WBC 10.4, RBC 3.82 L, Hgb 12.3 L, Hct 36.4 L, MCV 95.3 H, MCH 32.2 H, MCHC 33.7, RDW 12.8, Plt Count 156, MPV 8.8, Neut % (Auto) 89.6 H, Lymph % (Auto) 5.5 L, [place] % (Auto) 4.7, Eos % (Auto) 0.0 L, Baso % (Auto) 0.1, Neut # (Auto) 9.4 H, Lymph # (Auto) 0.6 L, [place] # (Auto) 0.5, Eos # (Auto) 0.0, Baso # (Auto) 0.0, Total Counted 100, Neutrophils % (Manual) 87 H, Band Neutrophils % 4.0, Lymphocytes % (Manual) 7 L, Monocytes % (Manual) 2, Platelet Estimate Normal, RBC Morphology Normal 10/07/19 05:40: Sodium 137, Potassium 4.0, Chloride 104, Carbon Dioxide 28, Anion Gap 9.0, BUN 16, Creatinine 0.80, Estimated Creat Clear 75, Estimated GFR 93, Est GFR ( Amer) 112, Glucose 140 H, Calcium 8.4 I & O for Last 24 hours: Intake & Output 10/04/19 10/05/19 10/06/19 10/07/19 23:59 23:59 23:59 23:59 Intake Total 825 / 825 1557 / 1557 Output Total 7600 / 7600 3350 / 3350 Balance -6775 / -6775 -1793 / -1793 Weight 91.371 kg Narrative: Well-nourished white male no apparent distress Patient is pleasantly demented Abdomen soft nondistended No cyanosis clubbing edema Normal respiratory effort Assessment and Plan (1) Prostate enlargement Current visit: No Status: Acute Category: Medical Code(s): N40.0 - Benign prostatic hyperplasia without lower urinary tract symptoms (2) Acute urinary retention Current visit: No Status: Acute Category: Medical Code(s): R33.8 - Other retention of urine Postop day 1 status post TURP. His urine is clear off of CBI. We will allow him to get up and walk around and if his urine remains clear we will discontinue his Davis catheter. He is able to void we will discharge him home later today.
[2019-10-07 16:00] VITALS: BP 119/70; PULSE 61; RESP 17; TEMP 36.6; O2SAT 97
--- NOTE | 2019-10-07 17:34 | PC.NURSE ---
PER DR. MONZON: [id number] THIS RN REMOVED DONIS, 30CC IN BALLOON, PATIENT TOLERATED WELL. THIS RN HAD WALKED WITH PATIENT IN HALLWAY AND ENCOURAGED PATIENT TO SIT ON TOLIET TO URINATE. PATIENT HAD NOT URINATED. THIS RN PHONED DR. MONZON AT [id number], PER DR. MONZON, THIS RN IS TO INSERT A DONIS AND CONTINUE WITH D/C. THIS RN INSERTED DONIS, WITH SOME DIFFICULTY AND PAIN, HEMATURIA DISCHARGED THRU CATHETER FOLLOWED WITH CLEAR YELLOW URINE. THIS RN EMPTIED 500 OUT OF DONIS. THIS RN PROVIDED D/C TEACHING ON CATHETER CARE TO SPOUSE. SPOUSE VERBALIZED AN UNDERSTANDING.
== END 2019-10-07 17:33 | disposition home or self-care (01) ==
LOC: 2ND 12:40
PROVIDERS: Admitting Provider Urology; PCP Family Medicine; Visit Provider Urology
PROC: 0VT08ZZ Resection of Prostate, Via Natural or Artificial Opening Endoscopic (ICD-10-PCS; CPT 52601; principal; 2019-10-06 10:30)
DX: N40.1 Benign prostatic hyperplasia with lower urinary tract symptoms (principal); N40.3 Nodular prostate with lower urinary tract symptoms; R97.20 Elevated prostate specific antigen [PSA]; R31.9 Hematuria, unspecified; R33.8 Other retention of urine; C61 Malignant neoplasm of prostate
CPT/HCPCS: 52601; 36415; 80048; 85007; 85025; 88305; 88342; 96374; G0378; J2405

== ENCOUNTER 2019-10-08 20:24 | Observation (INO) | payer MEDICARE, SELFPAY ==
[2019-10-08 20:27] VITALS: BP 130/82; PULSE 61; RESP 16; TEMP 36.6; O2SAT 94; BMI 23.1
--- NOTE | 2019-10-08 20:41 | HMH.EDGENADL ---
ED Disposition Clinical Impression: UTI (urinary tract infection) Qualifiers: Urinary tract infection type: acute cystitis Hematuria presence: with hematuria Qualified Code(s): N30.01 - Acute cystitis with hematuria Davis catheter problem Qualifiers: Encounter type: initial encounter Qualified Code(s): T83.9XXA - Unspecified complication of genitourinary prosthetic device, implant and graft, initial encounter Disposition: Admitted As Inpatient Condition on Discharge: Good - Critical Care Critical Care Time: No Attestation: On 10/08/19, the high probability of a clinically significant, sudden or life threatening deterioration of the following system(s) required my full and direct attention, intervention and personal management. The time I documented below is in addition to time spent performing reported procedures but includes the following listed in this critical care notation. Medical Decision Making - Medical Records Medical records reviewed: Yes: I reviewed the patient's medical records. - Jian Inquiry Pt receiving controlled substance: No Vital Signs: 10/08/19 20:27 10/08/19 21:00 10/08/19 21:30 Temperature 97.9 F Temperature Source Oral Pulse Rate [Right] 61 65 64 Respiratory Rate 16 18 18 Blood Pressure [Right Arm] 130/82 126/81 125/70 Blood Pressure Mean [Right Arm] 98 96 88 Blood Pressure Source [Right Arm] Automatic Cuff Automatic Cuff Automatic Cuff Blood Pressure Position [Right Arm] Sitting Supine Supine 02 Sat by Pulse Oximetry 94 L 98 98 Oxygen Delivery Method Room Air Room Air Room Air 10/08/19 22:00 10/08/19 22:30 Temperature Temperature Source Pulse Rate [Right] 64 66 Respiratory Rate 18 17 Blood Pressure [Right Arm] 116/77 113/70 Blood Pressure Mean [Right Arm] 90 84 Blood Pressure Source [Right Arm] Automatic Cuff Automatic Cuff Blood Pressure Position [Right Arm] Supine Supine 02 Sat by Pulse Oximetry 94 L 95 Oxygen Delivery Method Room Air Room Air - Lab Data Lab Results 10/08/19 20:37: WBC 7.9, RBC 4.89 D, Hgb 15.6, Hct 47.6, MCV 97.2 H, MCH 31.9 H, MCHC 32.9, RDW 13.2, Plt Count 213 D, MPV 8.5, Neut % (Auto) 61.7, Lymph % (Auto) 26.2, [place] % (Auto) 8.9, Eos % (Auto) 2.7, Baso % (Auto) 0.5, Neut # (Auto) 4.9, Lymph # (Auto) 2.1, [place] # (Auto) 0.7, Eos # (Auto) 0.2, Baso # (Auto) 0.0 10/08/19 20:37: Sodium 142, Potassium 3.7, Chloride 101, Carbon Dioxide 30, Anion Gap 14.7, BUN 15, Creatinine 0.90, Estimated Creat Clear 71, Estimated GFR 81, Est GFR ( Amer) 98, Glucose 100, Calcium 9.6 D, Total Bilirubin 0.5, AST 32, ALT 20, Alkaline Phosphatase 107, Total Protein 7.7, Albumin 4.3, Globulin 3.4 H, Albumin/Globulin Ratio 1.3 10/08/19 20:37: Lactate 1.9 10/08/19 20:37: PT 11.1, INR 1.09, APTT 23.1 L 10/08/19 20:37: SARS-CoV-2 IgG Ab (Rapid) Positive A, SARS-CoV-2 IgM Ab (Rapid) Negative 10/08/19 21:06: Urine Color Fatimah, Urine Appearance Turbid, Urine pH 8.5, Ur Specific [place] 1.020, Urine Protein 2+, Urine Glucose (UA) Negative, Urine Ketones Negative, Urine Blood 3+, Urine Nitrate Negative, Urine Bilirubin Negative, Urine Urobilinogen 0.2, Ur Leukocyte Esterase Trace, Urine RBC Tntc, Urine WBC 10-20, Ur Squamous Epith Cells 5-10, Urine Bacteria 1+ Result diagrams: 10/08/19 20:37 10/08/19 20:37 Orders (Tests/Meds): ED MEDICATIONS Generic Name Dose Route Start Last Admin Trade Name Freq PRN Reason Stop Dose Admin Ceftriaxone Sodium 1 gm/ 50 mls @ 100 mls/hr 10/08/19 22:15 10/08/19 23:10 Sodium Chloride IV 10/22/19 22:14 100 mls/hr Q24H FRANCISCO Administration Protocol Risperidone 0.25 mg 10/09/19 21:00 Risperdal 0.25mg Tablet PO 11/08/19 20:59 HS FRANCISCO Discontinued Medications Generic Name Dose Route Start Last Admin Trade Name Freq PRN Reason Stop Dose Admin Haloperidol Lactate 5 mg 10/08/19 21:39 10/08/19 21:40 Haldol 5mg/Ml Vial IM 10/08/19 21:40 5 mg ONCE ONE Administration ORDERS Category Date Time
[2019-10-08 21:00] VITALS: BP 126/81; PULSE 65; RESP 18; O2SAT 98
[2019-10-08 21:00] LABS: Basophils % 0.5 % (0.1-2.0); Eosinophils # 0.2 K/mm3 (0.0-0.4); Eosinophils % 2.7 % (0.1-12.0); Hematocrit 47.6 % (42.0-52.0); Hemoglobin 15.6 g/dL (14.1-18.0); Lymphocytes # 2.1 K/mm3 (0.7-4.5); Lymphocytes % 26.2 % (10-50); Mean Corpuscular HGB Conc 32.9 g/dL (31.8-35.4); Mean Corpuscular Hemoglobin 31.9 pg (27.0-31.2); Mean Corpuscular Volume 97.2 fl (80-94); Mean Platelet Volume 8.5 fl (7.4-10.4); Monocytes # 0.7 K/mm3 (0.1-1.0); Monocytes % 8.9 % (1.7-9.3); Neutrophils # 4.9 K/mm3 (1.8-7.8); Neutrophils % 61.7 % (37.0-80.0); Platelet Count 213 K/mm3 (142-424); Red Blood Count 4.89 M/mm3 (4.60-6.20); Red Cell Distribution Width 13.2 % (11.5-17.5); White Blood Count 7.9 K/mm3 (4.8-10.8)
[2019-10-08 21:03] LABS: Chloride 101 mmol/L (98-107); Potassium 3.7 mmoL/L (3.5-5.1); Sodium 142 mmol/L (136-145)
[2019-10-08 21:05] LABS: Blood Urea Nitrogen 15 mg/dl (9-20); Creatinine Clearance Estimated 71 mL/min (50-200); Estimated Glomerular Filt Rate 81 ml/min (>60); GFR (African American) 98 ML/MIN (>60)
[2019-10-08 21:06] LABS: Alanine Aminotransferase 20 U/L (12-78); Albumin Level 4.3 g/dl (3.5-5.0); Albumin/Globulin Ratio 1.3 (1.1-1.8); Alkaline Phosphatase 107 U/L (38-126); Anion Gap 14.7 mEq/L (5-15); Aspartate Amino Transferase 32 U/L (17-59); Bilirubin,Total 0.5 mg/dl (0.2-1.3); Carbon Dioxide 30 mmol/L (22.0-30.0); Globulin 3.4 g/dL (1.3-3.2); Glucose 100 mg/dl (74-100); Lactic Acid 1.9 mmol/L (0.7-2.1); Total Protein,Serum 7.7 g/dl (6.3-8.2)
[2019-10-08 21:10] LABS: Microscopic, Urine URINE MICROSCOPIC (MICROSCOPIC)
[2019-10-08 21:27] LABS: Activated Partial Thrombo Time 23.1 seconds (23.6-34.0); INR 1.09 (0.9-1.1); Prothrombin Time 11.1 seconds (9.4-11.8)
[2019-10-08 21:30] VITALS: BP 125/70; PULSE 64; RESP 18; O2SAT 98
--- NOTE | 2019-10-08 21:42 | PC.NURSE ---
DAUGHTER CAME OUT TO NURSES STATION TO REPORT PATIENT GETTING MORE AGITATED AND ATTEMPTING TO PULL IV OUT. PROVIDER WAS NOTIFIED AND MEDICATIONS ORDER
[2019-10-08 21:44] LABS: Appearance,Urine TURBID (Clear); Bilirubin,Urine Negative (Negative); Blood, Urine 3+ (Negative); Color,Urine AMBER (Yellow); Glucose,Urine (UA) Negative (Negative); Ketones,Urine Negative (Negative); Leukocyte Esterase,Urine TRACE (Negative); Nitrate,Urine Negative (Negative); PH,Urine 8.5 (5.0-8.5); Protein,Urine 2+ (Negative); Urobilinogen,Urine 0.2 EU/dl (0.2)
[2019-10-08 21:53] LABS: Bacteria,Urine 1+ /lpf; RBC,Urine TNTC #/hpf (0-3)
[2019-10-08 21:54] LABS: Calcium 9.6 mg/dl (8.4-10.2)
[2019-10-08 22:00] VITALS: BP 116/77; PULSE 64; RESP 18; O2SAT 94
--- NOTE | 2019-10-08 22:08 | PC.NURSE ---
Patient admitted to [facility] with dx of UTI. To service of [facility] to [place].
[2019-10-08 22:30] VITALS: BP 113/70; PULSE 66; RESP 17; O2SAT 95
[2019-10-08 23:06] LABS: Coronavirus 19 IgG Antibody Positive (Negative); Coronavirus 19 IgM Antibody Negative (Negative)
[2019-10-09 00:10] VITALS: BP 100/49; PULSE 61; RESP 16; TEMP 36.6; O2SAT 97
--- NOTE | 2019-10-09 00:31 | PC.NURSE ---
PT ARRIVED TO THE FLOOR VIA STRETCHER W/STAFF FROM ED AT 0030.
[2019-10-09 00:43] VITALS: BMI 20.1
[2019-10-09 00:44] VITALS: BP 124/65; PULSE 53; RESP 16; TEMP 36.9; O2SAT 96
[2019-10-09 01:00] VITALS: PULSE 53
[2019-10-09 04:00] VITALS: BP 105/59; PULSE 74; RESP 16; TEMP 36.6; O2SAT 96
[2019-10-09 05:24] VITALS: BMI 20.3
[2019-10-09 06:37] LABS: Basophils % 0.5 % (0.1-2.0); Eosinophils # 0.2 K/mm3 (0.0-0.4); Eosinophils % 3.7 % (0.1-12.0); Hematocrit 36.9 % (42.0-52.0); Lymphocytes # 1.2 K/mm3 (0.7-4.5); Lymphocytes % 20.8 % (10-50); Mean Corpuscular HGB Conc 34.3 g/dL (31.8-35.4); Mean Corpuscular Hemoglobin 31.9 pg (27.0-31.2); Mean Corpuscular Volume 93.1 fl (80-94); Mean Platelet Volume 8.8 fl (7.4-10.4); Monocytes # 0.5 K/mm3 (0.1-1.0); Monocytes % 9.2 % (1.7-9.3); Neutrophils # 3.9 K/mm3 (1.8-7.8); Neutrophils % 65.6 % (37.0-80.0); Platelet Count 160 K/mm3 (142-424); Red Blood Count 3.97 M/mm3 (4.60-6.20); Red Cell Distribution Width 13.5 % (11.5-17.5); White Blood Count 5.9 K/mm3 (4.8-10.8)
[2019-10-09 06:42] LABS: Chloride 104 mmol/L (98-107); Potassium 3.7 mmoL/L (3.5-5.1); Sodium 141 mmol/L (136-145)
[2019-10-09 06:45] LABS: Anion Gap 6.7 mEq/L (5-15); Blood Urea Nitrogen 14 mg/dl (9-20); Calcium 8.7 mg/dl (8.4-10.2); Carbon Dioxide 34 mmol/L (22.0-30.0); Creatinine Clearance Estimated 62 mL/min (50-200); Estimated Glomerular Filt Rate 93 ml/min (>60); GFR (African American) 112 ML/MIN (>60); Glucose 95 mg/dl (74-100)
--- NOTE | 2019-10-09 06:48 | PC.NURSE ---
received pt to floor, oriented to person only, attempted to get up, bed alarm on, dawson in place, gisela colored urine, denies pain, n/v, SOA
[2019-10-09 06:51] LABS: Hemoglobin 12.8 g/dL (14.1-18.0)
[2019-10-09 08:00] VITALS: BP 96/54; PULSE 60; RESP 16; TEMP 36.6; O2SAT 93
--- NOTE | 2019-10-09 08:07 | P.CONPHA_ITS ---
[facility] Pharmacy VTE Monitoring - Patient Demographics Admission date: 10/09/19 Report Date: 10/09/19 Time: 08:07 Allergies/Adverse Reactions: Patient Allergies No Known Allergies Allergy (Verified 09/22/19 14:58) Height: 1.93 m Weight: 75.75 kg Patient Problems: Current Active Problems UTI (urinary tract infection) (Acute) Davis catheter problem (Acute) - VTE Risk Labs: VTE Related Lab Results Hgb 12.8 g/dL (14.1-18.0) L D 10/09/19 06:16 Hct 36.9 % (42.0-52.0) L 10/09/19 06:16 Plt Count 160 K/mm3 (142-424) 10/09/19 06:16 PT 11.1 seconds (9.4-11.8) 10/08/19 20:37 INR 1.09 (0.9-1.1) 10/08/19 20:37 APTT 23.1 seconds (23.6-34.0) L 10/08/19 20:37 BUN 14 mg/dl (9-20) 10/09/19 06:16 Creatinine 0.80 mg/dl (0.66-1.25) 10/09/19 06:16 Estimated Creat Clear 62 mL/min (50-200) 10/09/19 06:16 Was VTE Risk Assessment Performed: Yes VTE Score: 3 VTE Risk Level: Low Risk - Prophylaxis VTE Prophylaxis Ordered?: Yes Types of VTE Prophylaxis: TEDS Knee High Location of Applied Device: Bilateral Lower Extremeties
--- NOTE | 2019-10-09 08:47 | HMH.HP ---
*Admission Date: 10/09/19 <Hetal Rodriguez 10/09/19 08:57> *Chief complaint: AMS, inability to care for patient at home <Hetal Rodriguez 10/09/19 08:57> *History of present illness: 79-year-old male with history of recent TURP procedure by urology who presents to the emergency department for evaluation after removing Davis. Patient has had worsening dementia for the past several months and now is having difficulty taking care of himself, and is unable to properly care for him at home. Obtained basic labs along with urinalysis to evaluate for possible UTI contributing to confusion. Replaced Davis catheter. Labs show no significant electrolyte abnormalities requiring correction. Urinalysis shows evidence of UTI with leukoesterase, leukocytosis, and bacteria. Started patient on IV Rocephin. Patient started to while in emergency department so was given 5 mg of the Haldol and 0.25 mg of oral risperidone with significant improvement of symptoms. Admitted patient to internal medicine for further treatment and evaluation due to unsafe home disposition. (the above as per the ER physician) <Hetal Rodriguez 10/09/19 08:57> [facility] History I have reviewed the patient's past medical history: Yes <Hetal Rodriguez 10/09/19 08:57> Medical History: Reports:: Anxiety, BPH, Cancer (skin), Dementia, Depression, Gastroesophageal Reflux Disease(GERD), Gastrointestinal Bleed, Hyperlipidemia, Hypertension Denies:: Atrial Fibrillation, Deep Vein Thrombosis, Diabetes Mellitus Type 1, Diabetes Mellitus Type 2, Internal Pacemaker, Lung Disease, MRSA, Myocardial Infarction, Seizures <Hetal Rodriguez 10/09/19 08:57> *Have you ever received a pneumonia vaccine?: Yes <Hetal Rodriguez 10/09/19 08:57> *Have you received a flu vaccine this season?: Yes <Hetal Rodriguez 10/09/19 08:57> Other Medical History: Reports: Arthritis, Other (SVT). Denies: Blood Transfusion Reaction <Hetal Rodriguez 10/09/19 08:57> Laterality Cases: Bilateral: Tonsillectomy <Hetal Rodriguez 10/09/19 08:57> Other Surgeries: Yes: Appendectomy, Cancer Surgery, Colonoscopy, Hernia Repair, Skin Cancer Excision, Other (Back surgery, TURP). No: Pacemaker <Hetal Rodriguez 10/09/19 08:57> Amputation: No <Demond Rodrigueza 10/09/19 08:57> Fractures: No <MichaelHetal - 10/09/19 08:57> - *Social History Last grade of school completed: High school graduate <Demond Rodrigueza 10/09/19 08:57> Smoking Status: Never smoker <Hetal Rodriguez 10/09/19 08:57> Alcohol Intake: never <Demond Rodrigueza 10/09/19 08:57> Alcohol Intake Frequency:: other <Demond Rodrigueza 10/09/19 08:57> Substance Use Type: denies use <Hetal Rodriguez 10/09/19 08:57> *Occupational Status:: retired <Demond Rodrigueza 10/09/19 08:57> Housing: house <Hetal Rodriguez 10/09/19 08:57> Household Members: spouse <MichaelHetal 10/09/19 08:57> *Travel in the last 8 weeks: None <MichaelHetal 10/09/19 08:57> - Psychiatric History Pschychiatric History:: Reports:: Anxiety, Depression <Demond Rodrigueza 10/09/19 08:57> Family Hx:: Hyperlipidemia, Hypertension, Mental illness <Demond Rodrigueza 10/09/19 08:57> Review of Systems - Constitutional Denies fatigue, Denies fever(s) <Demond Rodrigueza 10/09/19 08:57> - Eyes Denies blurry vision, Denies double vision <Demond Rodrigueza 10/09/19 08:57> - ENT Denies nasal congestion, Denies sore throat <Hetal Rodriguez 10/09/19 08:57> - *Cardiovascular Denies chest pain, Denies shortness of breath, Denies rapid, pounding, or irregular heartbeat <Hetal Rodriguez 10/09/19 08:57> - *Respiratory Denies cough, Denies shortness of breath <Hetal Rodriguez 10/09/19 08:57> - *Gastrointestinal Denies abdominal pain, Denies loose stools, Denies nausea, Denies vomiting <Hetal Rodriguez 10/09/19 08:57> - *Genitourinary Denies difficulty urinating, Denies painful urination <Hetal Rodriguez 10/09/19 08:57> - *Musculoskeletal Denies joint pain <Hetal Rodriguez 10/09/19
--- NOTE | 2019-10-09 10:28 | PC.NURSE ---
rounded with Dr. Alcantara. He gave verbal order to fill bladder with 300-400mL saline and then to discontinue catheter. Will assess for bladder distension.
--- NOTE | 2019-10-09 11:10 | PC.NURSE ---
inserted 300mL sterile saline into bladder via catheter. Pt was able to feel that his bladder was getting full around 200mL. Catheter discontinued per Dr. Alcantara order/request. Urinal placed within arms reach.
--- NOTE | 2019-10-09 11:33 | HMH.CONS ---
*Admission Date: 10/09/19 *Reason for consult:: Traumatic Davis removal after recent TUR P *History of present illness: Patient is an 79-year-old white male with dementia who is status post a TURP on Sunday of this week. He was discharged home on Sunday and did fail a voiding trial. We had attempted to get his catheter out on postop day 1 due to the fact he had pulled his Davis catheter out 2 times the week before his TURP. Both times reported out have resulted in minimal hematuria. His states that after they returned home yesterday they had taken a nap and when she woke up that his Davis catheter was on the ground. There was a slight amount of blood present. She took him back to emergency room where a Davis catheter was replaced. He was admitted for observation. His white count and hemoglobin are normal. [facility] History Medical History: Reports:: Anxiety, BPH, Cancer (skin), Dementia, Depression, Gastroesophageal Reflux Disease(GERD), Gastrointestinal Bleed, Hyperlipidemia, Hypertension Denies:: Atrial Fibrillation, Deep Vein Thrombosis, Diabetes Mellitus Type 1, Diabetes Mellitus Type 2, Internal Pacemaker, Lung Disease, MRSA, Myocardial Infarction, Seizures *Have you ever received a pneumonia vaccine?: Yes *Have you received a flu vaccine this season?: Yes Other Medical History: Reports: Arthritis, Other (SVT). Denies: Blood Transfusion Reaction Laterality Cases: Bilateral: Tonsillectomy Other Surgeries: Yes: Appendectomy, Cancer Surgery, Colonoscopy, Hernia Repair, Skin Cancer Excision, Other (Back surgery, TURP). No: Pacemaker Amputation: No Fractures: No - *Social History Last grade of school completed: High school graduate Smoking Status: Never smoker Alcohol Intake: never Alcohol Intake Frequency:: other Substance Use Type: denies use *Occupational Status:: retired Housing: house Household Members: spouse *Travel in the last 8 weeks: None - Psychiatric History Pschychiatric History:: Reports:: Anxiety, Depression Family Hx:: Hyperlipidemia, Hypertension, Mental illness Review of Systems - Review of Systems Review of systems:: pertinent systems reviewed and negative unless documented below - *Neurologic Denies headache(s), Denies dizziness, Denies weakness Meds Home Medications Medication Instructions Recorded Confirmed Type Fluoxetine HCl [Prozac] 40 mg PO DAILY 06/18/17 10/08/19 History Simvastatin 20 mg PO HS 06/18/17 10/08/19 History polyethylene glycoL 3350 [Miralax 17 gm PO DAILY PRN 06/18/17 10/08/19 History 17gm Packet] Aspirin [Aspirin 81mg EC Tab] 81 mg PO DAILY 08/21/19 10/08/19 History Memantine HCl [Memantine 10mg 10 mg PO BID 08/21/19 10/08/19 History Tablet] Naproxen 500 mg PO BIDP PRN 08/21/19 10/08/19 History Triamterene/Hydrochlorothiazid 0.5 each PO DAILY 08/21/19 10/08/19 History [Triamterene-Hctz 37.5-25 mg Tb] dilTIAZem HCL [Cartia Xt] 180 mg PO DAILY 08/21/19 10/08/19 History Gabapentin [Gabapentin 100mg Cap] 100 mg PO BID 10/06/19 10/08/19 History diazePAM [Diazepam 2mg tablets] 2 mg PO Q8HP PRN 10/07/19 10/08/19 History cephALEXin [cephALEXin 500mg 500 mg PO QID 10/09/19 10/09/19 History capsule*] Allergies Allergy/AdvReac Type Severity Reaction Status Date / Time No Known Allergies Allergy Verified 09/22/19 14:58 Exam Vital signs and Labs for Last 24 Hours: Temp Pulse Resp BP Pulse Ox 97.8 F 60 16 96/54 L 93 L 10/09/19 08:00 10/09/19 08:00 10/09/19 08:00 10/09/19 08:00 10/09/19 08:00 Laboratory Results - last 24 hr 10/08/19 20:37: WBC 7.9, RBC 4.89 D, Hgb 15.6, Hct 47.6, MCV 97.2 H, MCH 31.9 H, MCHC 32.9, RDW 13.2, Plt Count 213 D, MPV 8.5, Neut % (Auto) 61.7, Lymph % (Auto) 26.2, [place] % (Auto) 8.9, Eos % (Auto) 2.7, Baso % (Auto) 0.5, Neut # (Auto) 4.9, Lymph # (Auto) 2.1, [place] # (Auto) 0.7, Eos # (Auto) 0.2, Baso # (Auto) 0.0 10/08/19 20:37: Sodium 142, Potassium 3.7, Chloride 101, Carbon Dioxide 30, Anion Gap 14.7, BUN 15
--- NOTE | 2019-10-09 11:42 | SW/DCPLANNER ---
HAD A CONVERSATION VIA TELEPHONE REGARDING DISCHARGE PLANNING: PATIENTS EXPRESSED PATIENT HAS PULLED HIS CATHETER OUT MULTIPLE TIMES AFTER HE HAD SURGERY.. PATIENT HAS DEMENTIA AND DOESN'T UNDERSTAND THE NEED TO KEEP IT IN..SHE DID NOT APPEAR INTERESTED IN HIM BEING PLACED AND QUITE HONESTLY PATIENT DOES NOT HAVE A SKILLED NEED FOR MCR TO BE HIS PAYOR SOURCE.. I MENTIONED HOME HEALTH AND TOLD HER WE COULD HAVE A NURSE COME IN AND SEE PATIENT FOR CATH CARE BUT SHE WASN'T SURE ABOUT THAT EITHER...I DID TAKE HER A SITTERS LIST AND PUT IT IN HIS FOLDER AND EXPLAINED IF SHE WANTS TO TRY HOME HEALTH I WOULD BE GLAD TO SET IT UP FOR HER... HE DID HAVE A NIC[facility]S CONSULT AND DR MONZON IS GOING TO SPEAK WITH ABOUT TREATMENT OPTIONS.. HE IS CLOSE TO BEING READY TO DISCHARGE.. WILL SET UP ANY HOME CARE THAT IS ORDERED...
--- NOTE | 2019-10-09 13:00 | PC.NURSE ---
received call from Dr. Alcantara checking on status of bladder distension and UOP. Explained to Dr. Alcantara that pt has been OOB aprox 20 times since catheter discontinued and 300mL sterile saline inserted into bladder. Pt has yet to void. Bladder is mildly distended. Also explained that pt is getting anxious, restless and combative and that Valium 2mg was given. He encouraged Haldol and/or Rispedone if Valium not effective as this is what pt received last night in the ED. Dr. Alcantara does not want catheter reinserted @ this time.
--- NOTE | 2019-10-09 14:29 | PC.NURSE ---
Joana Nicole RN informed me that pt has voided twice in the toilet. UOP is blood tinged and small in amount. Dr. Alcantara @ [facility]. Updated him.
[2019-10-09 16:00] VITALS: BP 104/68; PULSE 68; RESP 16; TEMP 36.8; O2SAT 96
--- NOTE | 2019-10-09 16:37 | [facility].DCSUM ---
General - General Admission date:: 10/09/19 Discharge date: 10/09/19 HPI HPI: 79-year-old male with history of recent TURP procedure by urology who presents to the emergency department for evaluation after removing Dawson. Patient has had worsening dementia for the past several months and now is having difficulty taking care of himself, and is unable to properly care for him at home. Obtained basic labs along with urinalysis to evaluate for possible UTI contributing to confusion. Replaced Dawson catheter. Labs show no significant electrolyte abnormalities requiring correction. Urinalysis shows evidence of UTI with leukoesterase, leukocytosis, and bacteria. Started patient on IV Rocephin. Patient started to while in emergency department so was given 5 mg of the Haldol and 0.25 mg of oral risperidone with significant improvement of symptoms. Admitted patient to internal medicine for further treatment and evaluation due to unsafe home disposition. (the above as per the ER physician) Hospital Course Hospital Course: The patient was seen in consultation by Dr. Alcantara. His recent pathology showed Whitt 9 prostate cancer which was not unexpected as his preoperative PSA was 139 and he had a prostate nodule. He discussed this finding with the patient's and they will be discussing treatment for his prostate cancer. The patient's dawson was removed and he was able to void twice. He was stable to be discharged home. Objective Vital signs: Temp Pulse Resp BP Pulse Ox 97.8 F 60 16 96/54 L 93 L 10/09/19 08:00 10/09/19 08:00 10/09/19 08:00 10/09/19 08:00 10/09/19 08:00 Narrative: - Constitutional no acute distress - *Routine HEENT Exam Head: Present: normocephalic Eye: Present: EOMI, PERRL ENT: Present: mucous membranes moist - *Routine Neck Exam Present: supple. Absent: lymphadenopathy - *Routine Respiratory Exam Present: CTA bilaterally - *Routine Cardiovascular Exam Present: RRR - *Routine Abdominal Exam Present: soft, normoactive bowel sounds. Absent: tenderness - *Routine Extremities Exam Absent: cyanosis, clubbing, edema - *Routine Skin Exam Present: warm. Absent: rash - *Routine Neurological Exam Present: alert, oriented X3 Results Labs on day of discharge: Labs from last 24 hours 10/09/19 10/09/19 10/08/19 06:16 06:16 21:06 WBC 5.9 D RBC 3.97 L Hgb 12.8 L D Hct 36.9 L MCV 93.1 MCH 31.9 H MCHC 34.3 RDW 13.5 Plt Count 160 MPV 8.8 Neut % (Auto) 65.6 Lymph % (Auto) 20.8 [place] % (Auto) 9.2 Eos % (Auto) 3.7 Baso % (Auto) 0.5 Neut # (Auto) 3.9 Lymph # (Auto) 1.2 [place] # (Auto) 0.5 Eos # (Auto) 0.2 Baso # (Auto) 0.0 PT INR APTT Sodium 141 Potassium 3.7 Chloride 104 Carbon Dioxide 34 H Anion Gap 6.7 BUN 14 Creatinine 0.80 Estimated Creat Clear 62 Estimated GFR 93 Est GFR ( Amer) 112 Glucose 95 Lactate Calcium 8.7 Total Bilirubin AST ALT Alkaline Phosphatase Total Protein Albumin Globulin Albumin/Globulin Ratio Urine Color Fatimah Urine Appearance Turbid Urine pH 8.5 Ur Specific [place] 1.020 Urine Protein 2+ Urine Glucose (UA) Negative Urine Ketones Negative Urine Blood 3+ Urine Nitrate Negative Urine Bilirubin Negative Urine Urobilinogen 0.2 Ur Leukocyte Esterase Trace Urine RBC Tntc Urine WBC 10-20 Ur Squamous Epith Cells 5-10 Urine Bacteria 1+ SARS-CoV-2 IgG Ab (Rapid) SARS-CoV-2 IgM Ab (Rapid) 10/08/19 10/08/19 10/08/19 20:37 20:37 20:37 WBC RBC Hgb Hct MCV MCH MCHC RDW Plt Count MPV Neut % (Auto) Lymph % (Auto) [place] % (Auto) Eos % (Auto) Baso % (Auto) Neut # (Auto) Lymph # (Auto) [place] # (Auto) Eos # (Auto) Baso # (Auto
--- NOTE | 2019-10-14 11:25 | SW/DCPLANNER ---
SENT REFERRAL TO [facility] TO SEE IF THEY WILL ACCEPT THIS PATIENT FOR PLACEMENT...PATIENT HAS CALLED DR ROMERO'S OFFICE AT LEAST 6 TIMES TODAY IN DESPERATE NEED TO GET HIM PLACED.. SHE STATED SHE CAN NOT CARE FOR HIM AT HOME... I SPOKE WITH MIKE AND SHE IS GOING TO CALL AND LET ME KNOW IF SHE CAN ACCEPT THIS PATIENT... IF NOT I WILL NEED TO EXPLORE OTHER OPTIONS...
== END 2019-10-09 18:33 | disposition home or self-care (01) ==
LOC: ER 20:29 → 2ND 10-09 00:04
PROVIDERS: Admitting Provider Family Medicine; Emergency Provider Emergency Medicine; PCP Family Medicine; Visit Provider Family Medicine
DX: N30.01 Acute cystitis with hematuria (principal); T83.83XA Hemorrhage due to genitourinary prosthetic devices, implants and grafts, initial encounter; Z86.19 Personal history of other infectious and parasitic diseases; C61 Malignant neoplasm of prostate; Z79.899 Other long term (current) drug therapy; I10 Essential (primary) hypertension; Z98.890 Other specified postprocedural states
CPT/HCPCS: 80048; 80053; 81001; 83605; 85025; 85610; 85730; 86328; 87086; 96365; 96375; 99284; 99285; G0378

== ENCOUNTER → 2019-10-23 12:10 | Outpatient (CLI) | payer MEDICARE, SELFPAY ==
[2019-10-23 14:28] LABS: Prostate Specific Ag, Diagnost 335 ng/ml (0.0-4.0)
== END ==
PROVIDERS: Visit Provider Urology
DX: C61 Malignant neoplasm of prostate (principal)
CPT/HCPCS: 36415; 84153

== ENCOUNTER → 2020-04-26 14:37 | Outpatient (CLI) | payer MEDICARE, SELFPAY ==
[2020-04-26 15:51] LABS: Prostate Specific Ag, Diagnost 0.587 ng/ml (0.0-4.0)
== END ==
PROVIDERS: Visit Provider Urology
DX: C61 Malignant neoplasm of prostate (principal)
CPT/HCPCS: 36415; 84153

== ENCOUNTER → 2020-09-07 12:22 | Outpatient (CLI) | payer MEDICARE, SELFPAY ==
[2020-09-07 12:34] LABS: Basophils # 0.2 K/mm3 (0-0.2); Basophils % 2.5 % (0.1-2.0); Eosinophils # 0.3 K/mm3 (0.0-0.4); Eosinophils % 4.7 % (0.1-12.0); Hematocrit 43.1 % (42.0-52.0); Hemoglobin 13.8 g/dL (14.1-18.0); Lymphocytes # 1.4 K/mm3 (0.7-4.5); Lymphocytes % 21.9 % (10-50); Mean Corpuscular HGB Conc 32.1 g/dL (31.8-35.4); Mean Corpuscular Hemoglobin 31.3 pg (27.0-31.2); Mean Corpuscular Volume 97.5 fl (80-94); Mean Platelet Volume 15.2 fl (7.4-10.4); Monocytes # 0.5 K/mm3 (0.1-1.0); Monocytes % 7.3 % (1.7-9.3); Neutrophils # 4.1 K/mm3 (1.8-7.8); Neutrophils % 63.6 % (37.0-80.0); Platelet Count 152 K/mm3 (142-424); Red Blood Count 4.42 M/mm3 (4.60-6.20); White Blood Count 6.4 K/mm3 (4.8-10.8)
[2020-09-07 13:20] LABS: Chloride 104 mmol/L (98-107); Potassium 4.3 mmoL/L (3.5-5.1); Sodium 142 mmol/L (136-145)
[2020-09-07 13:23] LABS: Alanine Aminotransferase 8 U/L (12-78); Albumin Level 3.5 g/dl (3.5-5.0); Albumin/Globulin Ratio 1.3 (1.1-1.8); Alkaline Phosphatase 95 U/L (38-126); Anion Gap 10.3 mEq/L (5-15); Aspartate Amino Transferase 21 U/L (17-59); Bilirubin,Total 0.4 mg/dl (0.2-1.3); Blood Urea Nitrogen 20 mg/dl (9-20); Calcium 8.7 mg/dl (8.4-10.2); Carbon Dioxide 32 mmol/L (22.0-30.0); Estimated Glomerular Filt Rate 72 ml/min (>60); GFR (African American) 87 ML/MIN (>60); Globulin 2.7 g/dL (1.3-3.2); Glucose 74 mg/dl (74-100); Total Protein,Serum 6.2 g/dl (6.3-8.2)
== END ==
PROVIDERS: Visit Provider Nurse Practitioner Family
DX: I10 Essential (primary) hypertension (principal); E78.5 Hyperlipidemia, unspecified
CPT/HCPCS: 36415; 80053; 85025

== ENCOUNTER → 2020-11-18 11:37 | Outpatient (CLI) | payer MEDICARE, SELFPAY ==
[2020-11-19 09:29] LABS: PSA, Free 4.72 ng/mL; Prostate Specific Ag 41.1 ng/mL (0.0-4.0)
== END ==
PROVIDERS: Visit Provider Urology
DX: C61 Malignant neoplasm of prostate (principal)
CPT/HCPCS: 36415; 84153; 84154

== ENCOUNTER → 2021-02-01 13:30 | Outpatient (CLI) | payer MEDICARE, SELFPAY ==
[2021-02-02 08:47] LABS: Microscopic, Urine URINE MICROSCOPIC (MICROSCOPIC)
[2021-02-02 14:25] LABS: Appearance,Urine SL CLOUDY (Clear); Bilirubin,Urine Negative (Negative); Blood, Urine Negative (Negative); Color,Urine YELLOW (Yellow); Glucose,Urine (UA) Negative (Negative); Ketones,Urine Negative (Negative); Leukocyte Esterase,Urine Negative (Negative); Nitrate,Urine Negative (Negative); Protein,Urine Negative (Negative); Specific Gravity, Urine 1.025 (1.005-1.030); Urobilinogen,Urine 0.2 EU/dl (0.2)
[2021-02-02 14:43] LABS: Bacteria,Urine 2+ /lpf; Calcium Oxalate Crystals,Urine 1+ /lpf
== END ==
PROVIDERS: Visit Provider Nurse Practitioner Family
DX: N39.0 Urinary tract infection, site not specified (principal)
CPT/HCPCS: 81001; 87086

== ENCOUNTER → 2021-03-08 08:14 | Outpatient (CLI) | payer MEDICARE, SELFPAY ==
[2021-03-08 14:03] LABS: Chloride 107 mmol/L (98-107); Potassium 3.9 mmoL/L (3.5-5.1); Sodium 138 mmol/L (136-145)
[2021-03-08 14:05] LABS: Basophils # 0.1 K/mm3 (0-0.2); Basophils % 1.1 % (0.1-2.0); Eosinophils # 0.3 K/mm3 (0.0-0.4); Eosinophils % 6.3 % (0.1-12.0); Hematocrit 42.2 % (42.0-52.0); Hemoglobin 13.8 g/dL (14.1-18.0); Lymphocytes # 1.2 K/mm3 (0.7-4.5); Lymphocytes % 28.2 % (10-50); Mean Corpuscular HGB Conc 32.8 g/dL (31.8-35.4); Mean Corpuscular Hemoglobin 31.6 pg (27.0-31.2); Mean Corpuscular Volume 96.1 fl (80-94); Mean Platelet Volume 9.6 fl (7.4-10.4); Monocytes # 0.5 K/mm3 (0.1-1.0); Monocytes % 11.8 % (1.7-9.3); Neutrophils # 2.3 K/mm3 (1.8-7.8); Neutrophils % 52.6 % (37.0-80.0); Platelet Count 188 K/mm3 (142-424); Red Blood Count 4.39 M/mm3 (4.60-6.20); Red Cell Distribution Width 12.9 % (11.5-17.5); White Blood Count 4.3 K/mm3 (4.8-10.8)
[2021-03-08 14:06] LABS: Alanine Aminotransferase 9 U/L (12-78); Albumin Level 3.5 g/dl (3.5-5.0); Albumin/Globulin Ratio 1.3 (1.1-1.8); Alkaline Phosphatase 86 U/L (38-126); Anion Gap 4.9 mEq/L (5-15); Aspartate Amino Transferase 23 U/L (17-59); Bilirubin,Total 0.6 mg/dl (0.2-1.3); Blood Urea Nitrogen 20 mg/dl (9-20); Calcium 8.8 mg/dl (8.4-10.2); Carbon Dioxide 30 mmol/L (22.0-30.0); Estimated Glomerular Filt Rate 93 ml/min (>60); GFR (African American) 112 ML/MIN (>60); Globulin 2.6 g/dL (1.3-3.2); Glucose 84 mg/dl (74-100); Total Protein,Serum 6.1 g/dl (6.3-8.2)
== END ==
PROVIDERS: Visit Provider Nurse Practitioner Family
DX: I10 Essential (primary) hypertension (principal); E78.5 Hyperlipidemia, unspecified
CPT/HCPCS: 36415; 80053; 85025

== ENCOUNTER → 2021-05-19 15:03 | Outpatient (CLI) | payer MEDICARE, SELFPAY ==
[2021-05-19 17:47] LABS: Prostate Specific Ag, Diagnost 12.6 ng/ml (0.0-4.0)
== END ==
PROVIDERS: Visit Provider Urology
DX: C61 Malignant neoplasm of prostate (principal)
CPT/HCPCS: 36415; 84153